=== PATIENT | female | born 1965 | race Caucasian/White ===

== ENCOUNTER 2023-04-02 04:57 | Emergency (ER) | payer SELFPAY ==
[2023-04-02 04:59] VITALS: BP 128/65; PULSE 85; RESP 32; TEMP 36.6; O2SAT 99; BMI 33.5
--- NOTE | 2023-04-02 05:03 | ED_ITS ---
HPI - Nausea/Vomiting/Diarrhea General Chief complaint: Nausea/Vomiting/Diarrhea Stated complaint: VOMITING Time Seen by Provider: 04/02/23 05:02 History of Present Illness HPI Narrative: patient presents with recurrent vomiting that started last PM. One loose stool. No fever or chills. Abdominal cramping. She believes her symptoms are related to chicken she ate last PM Related Data Home Medications Medication Instructions Recorded Confirmed alprazolam 0.25 mg tablet mg 04/02/23 Allergies Allergy/AdvReac Type Severity Reaction Status Date / Time naproxen [From Aleve] Allergy Unknown Verified 04/02/23 05:12 Penicillins Allergy Unknown Verified 04/02/23 05:07 tramadol Allergy Unknown Verified 04/02/23 05:07 Review of Systems ROS Status of ROS 10 or more systems reviewed and unremark able except as noted in history and below PFSH PFS Social History Smoking status: Never smoker Exam Constitutional Vital Signs, click to edit/add: Last Vital Signs Temp 97.9 F 04/02/23 04:59 Pulse 85 04/02/23 04:59 Resp 32 H 04/02/23 04:59 BP 128/65 04/02/23 04:59 Pulse Ox 99 04/02/23 04:59 O2 Del Method Room Air 04/02/23 04:59 Common normals: oriented x3, alert and well nourished HENIN Common normals: normocephalic and head/scalp atraumatic Eye Common normals: EOMs intact bilaterally and conjunctivae normal Respiratory Common normals: normal respiratory effort, no retractions and no use of accessory muscles Cardio Common normals: regular rate, regular rhythm, S1 normal heart sound and S2 normal heart sound GI Common normals: Normal to inspection, nondistended, normoactive bowel sounds present, soft to palpation and non-tender Extremity Common normals: normal to inspection and full ROM Neuro Common normals: oriented x3, CN's II-XII intact bilaterally, moves all extremities and no focal motor deficits Psych Appearance: grossly normal Course Vital Signs Vital signs: Vital Signs Temperature 97.9 F 04/02/23 04:59 Pulse Rate 85 04/02/23 04:59 Respiratory Rate 32 H 04/02/23 04:59 Blood Pressure 128/65 04/02/23 04:59 Pulse Oximetry 99 04/02/23 04:59 Oxygen Delivery Method Room Air 04/02/23 04:59 Temperature 97.9 F 04/02/23 04:59 Pulse Rate 85 04/02/23 04:59 Respiratory Rate 32 H 04/02/23 04:59 Blood Pressure 128/65 04/02/23 04:59 Pulse Oximetry 99 04/02/23 04:59 Oxygen Delivery Method Room Air 04/02/23 04:59 MDM - Nausea/Vomiting/Diarrhea MDM Narrative Medical decision making narrative: patient presents with possible food poisoning. Recurrent vomiting and one loose stool before arrival. Nausea and vomiting controlled after she was given zofran by [facility] and Reglan here in the department. Did have 2nd loose stool while here. labs with elevated lactic acid. IV fluids ordered. Patient starting to feel better. Will transfer care to oncoming physician Differential Diagnosis Differential diagnosis: Likely food poisoning, gastroenteritis, drug-induced nausea and vomiting and dehydration Lab Data Labs: Lab Results 04/02/23 04/02/23 Range/Units 05:09 05:50 WBC 12.2 H (4.0-11.0) 10^3/uL RBC 4.78 (4.20-5.40) 10^6/uL Hgb 14.5 (12.0-16.0) g/dL Hct 45.3 (36.0-48.0) % MCV 94.8 (81.0-99.0) fL MCH 30.3 (26.7-34.0) pg MCHC 32.0 (29.9-35.2) g/dL RDW 12.5 (11.0-15.0) % Plt Count 264 (150-450) 10^3/uL MPV 10.0 (9.5-13.5) fL Neut % (Auto) 88.5 H (43.0-75.0) % Lymph % (Auto) 6.3 L (20.5-60.0) % [place] % (Auto) 3.5 (1.7-12.0) % Eos % (Auto) 0.6 L (0.9-7.0) % Baso % (Auto) 0.3 (0.2-2.0) % Neut # (Auto) 10.8 H (1.4-6.5) 10^3/uL Lymph # (Auto) 0.8 L (1.2-3.8) 10^3/uL [place] # (Auto) 0.4 (0.3-0.8) 10^3/uL Eos # (Auto) 0.1 (0.0-0.7) 10^3/uL Baso # (Auto) 0.0 (0.0-0.1) 10^3/uL Abs Immat Gran (auto) 0.10 H (0.00-0.03) 10^3/uL Imm/Tot Granulo (auto) 0.8 H (0.0-0.5) % Sodium 140 (136-145) mmol/L Potassium 3.8 (3.5-5.1) mmol/L Chloride 105 (98-107) mmol/L Carbon Dioxide 26.0 (21.0-32.0) mmol/L Anion Gap 12.8 BUN 20.0 H (7.0-18.0) mg/dL Creatinine 0.85 (0.55-1.02) mg/dL Est GFR ( Amer) >60 (>=60) Est GFR (Non-Af Amer) >60 (>=60) BUN/Creatinine Ratio 23.5 Glucose 112 H (74-106) mg/dL Lactate 4.0 H* (0.4-2.0) mmol/L Calcium 8.4 L (8.5-10.1) mg/dL Total Bilirubin 0.7 (0.2-1.0) mg/dL AST 25 (15-37) U/L ALT 69 H (14-59) U/L Alkaline Phosphatase 99 (46-116) U/L Total Protein 6.9 (6.4-8.2) g/dL Albumin 3.3 L (3.4-5.0) g/dL Globulin 3.6 g/dL Albumin/Globulin Ratio 0.9 Urine Color Yellow (YELLOW) Urine Clarity Clear (CLEAR) Urine pH 6.0 (5.0-9.0) Ur Specific [place] 1.015 (1.005-1.025) Urine Protein Negative (NEG/TRACE) mg/dL Urine Glucose (UA) Negative (NEGATIVE) mg/dL Urine Ketones Negative (NEGATIVE) mg/dL Urine Occult Blood Negative (NEGATIVE) Urine Nitrite Negative (NEGATIVE) Urine Bilirubin Negative (NEGATIVE) Urine Urobilinogen 0.2 (0.2-1.0) EU/dL Ur Leukocyte Esterase Negative (NEGATIVE) Discharge Plan Discharge Chief Complaint: Nausea/Vomiting/Diarrhea Clinical Impression: Food poisoning Patient Disposition: Still a Patient Prescriptions / Home Meds: No Action alprazolam 0.25 mg tablet Referrals: Josi Ruiz MD [Primary Care Provider] - 1 week
[2023-04-02] MEDS: METOCLOPRAMIDE HCL 10 MG/2 ML VIAL IVP (05:21)
[2023-04-02 05:24] LABS: Basophils Percent Auto 0.3 % (0.2-2.0); Eosinophils Absolute Auto 0.1 10^3/uL (0.0-0.7); Eosinophils Percent Auto 0.6 % (0.9-7.0); Hematocrit 45.3 % (36.0-48.0); Hemoglobin 14.5 g/dL (12.0-16.0); Immature Granulocytes Pct Auto 0.8 % (0.0-0.5); Lymphocytes Absolute Auto 0.8 10^3/uL (1.2-3.8); Lymphocytes Percent Auto 6.3 % (20.5-60.0); Mean Corpuscular Hemoglobin 30.3 pg (26.7-34.0); Mean Corpuscular Volume 94.8 fL (81.0-99.0); Monocytes Absolute Auto 0.4 10^3/uL (0.3-0.8); Monocytes Percent Auto 3.5 % (1.7-12.0); Neutrophils Absolute Auto 10.8 10^3/uL (1.4-6.5); Neutrophils Percent Auto 88.5 % (43.0-75.0); Platelet Count 264 10^3/uL (150-450); Red Blood Count 4.78 10^6/uL (4.20-5.40); Red Cell Distribution Width 12.5 % (11.0-15.0); White Blood Count 12.2 10^3/uL (4.0-11.0)
[2023-04-02 05:34] LABS: Alanine Aminotransferase 69 U/L (14-59); Albumin Globulin Ratio 0.9; Albumin Level 3.3 g/dL (3.4-5.0); Alkaline Phosphatase 99 U/L (46-116); Anion Gap 12.8; Aspartate Amino Transferase 25 U/L (15-37); BUN Creatinine Ratio 23.5; Bilirubin Total 0.7 mg/dL (0.2-1.0); Calcium 8.4 mg/dL (8.5-10.1); Chloride 105 mmol/L (98-107); Estimated GFR (African America >60 (>=60); Estimated GFR (Non-African Ame >60 (>=60); Globulin 3.6 g/dL; Glucose 112 mg/dL (74-106); Potassium 3.8 mmol/L (3.5-5.1); Sodium 140 mmol/L (136-145); Total Protein 6.9 g/dL (6.4-8.2)
[2023-04-02] MEDS: LORAZEPAM 2 MG/ML 1 ML VIAL 1 MG IV (05:35)
[2023-04-02 06:00] LABS: Bilirubin Urine NEGATIVE (NEGATIVE); Blood Urine NEGATIVE (NEGATIVE); Clarity Urine CLEAR (CLEAR); Color Urine YELLOW (YELLOW); Glucose Urine UA NEGATIVE (NEGATIVE); Ketones Urine NEGATIVE (NEGATIVE); Leukocyte Esterase Urine NEGATIVE (NEGATIVE); Nitrite Urine NEGATIVE (NEGATIVE); Protein Urine NEGATIVE (NEG/TRACE); Specific Gravity Urine 1.015 (1.005-1.025); Urobilinogen Urine 0.2 EU/dL (0.2-1.0)
[2023-04-02 06:09] LABS: Urine Microscopic Indicated NO
[2023-04-02 07:13] VITALS: BP 120/75; PULSE 99; RESP 20; O2SAT 100
--- NOTE | 2023-04-02 08:44 | ED_ITS ---
HPI - Nausea/Vomiting/Diarrhea General Chief complaint: Nausea/Vomiting/Diarrhea Stated complaint: VOMITING Time Seen by Provider: 04/02/23 05:02 Source: patient Mode of arrival: ambulance Limitations: no limitations History of Present Illness HPI Narrative: The patient was initially seen by Dr. Sorto and signed out to me after discussing the case with him thoroughly. Please see his full history and physical Related Data Home Medications Medication Instructions Recorded Confirmed alprazolam 0.25 mg tablet 0.25 mg PO Q12H 04/02/23 04/02/23 benzonatate 200 mg capsule 200 mg PO Q8H 04/02/23 04/02/23 doxycycline monohydrate 100 mg 100 mg PO Q12H 04/02/23 04/02/23 tablet levothyroxine 75 mcg tablet 75 mcg PO Q24H 04/02/23 04/02/23 Previous Rx's Medication Instructions Recorded ondansetron 4 mg disintegrating 4 mg PO Q6H PRN nausea and 04/02/23 tablet vomiting #20 tabs Allergies Allergy/AdvReac Type Severity Reaction Status Date / Time naproxen [From Aleve] Allergy Unknown Verified 04/02/23 05:12 Penicillins Allergy Unknown Verified 04/02/23 05:07 tramadol Allergy Unknown Verified 04/02/23 05:07 PFSH PFSH Social History Smoking status: Never smoker Exam Constitutional Vital Signs, click to edit/add: Last Vital Signs Temp 97.9 F 04/02/23 04:59 Pulse 99 H 04/02/23 07:13 Resp 20 04/02/23 07:13 BP 120/75 04/02/23 07:13 Pulse Ox 100 04/02/23 07:13 O2 Del Method Room Air 04/02/23 04:59 Course Vital Signs Vital signs: Vital Signs Temperature 97.9 F 04/02/23 04:59 Pulse Rate 85 04/02/23 04:59 Respiratory Rate 32 H 04/02/23 04:59 Blood Pressure 128/65 04/02/23 04:59 Pulse Oximetry 99 04/02/23 04:59 Oxygen Delivery Method Room Air 04/02/23 04:59 Temperature 97.9 F 04/02/23 04:59 Pulse Rate 99 H 04/02/23 07:13 Respiratory Rate 20 04/02/23 07:13 Blood Pressure 120/75 04/02/23 07:13 Pulse Oximetry 100 04/02/23 07:13 Oxygen Delivery Method Room Air 04/02/23 04:59 MDM - Nausea/Vomiting/Diarrhea MDM Narrative Medical decision making narrative: The patient is feeling improved now and is able to be discharged home with a prescription for Zofran. Treatment diagnosis and follow-up were discussed with the patient. Differential Diagnosis Differential diagnosis: Likely food poisoning, gastroenteritis and dehydration Lab Data Attestation: I reviewed the patient's lab results. Labs: Lab Results 04/02/23 04/02/23 04/02/23 Range/Units 05:09 05:50 08:02 WBC 12.2 H (4.0-11.0) 10^3/uL RBC 4.78 (4.20-5.40) 10^6/uL Hgb 14.5 (12.0-16.0) g/dL Hct 45.3 (36.0-48.0) % MCV 94.8 (81.0-99.0) fL MCH 30.3 (26.7-34.0) pg MCHC 32.0 (29.9-35.2) g/dL RDW 12.5 (11.0-15.0) % Plt Count 264 (150-450) 10^3/uL MPV 10.0 (9.5-13.5) fL Neut % (Auto) 88.5 H (43.0-75.0) % Lymph % (Auto) 6.3 L (20.5-60.0) % [place] % (Auto) 3.5 (1.7-12.0) % Eos % (Auto) 0.6 L (0.9-7.0) % Baso % (Auto) 0.3 (0.2-2.0) % Neut # (Auto) 10.8 H (1.4-6.5) 10^3/uL Lymph # (Auto) 0.8 L (1.2-3.8) 10^3/uL [place] # (Auto) 0.4 (0.3-0.8) 10^3/uL Eos # (Auto) 0.1 (0.0-0.7) 10^3/uL Baso # (Auto) 0.0 (0.0-0.1) 10^3/uL Abs Immat Gran (auto) 0.10 H (0.00-0.03) 10^3/uL Imm/Tot Granulo (auto) 0.8 H (0.0-0.5) % Sodium 140 (136-145) mmol/L Potassium 3.8 (3.5-5.1) mmol/L Chloride 105 (98-107) mmol/L Carbon Dioxide 26.0 (21.0-32.0) mmol/L Anion Gap 12.8 BUN 20.0 H (7.0-18.0) mg/dL Creatinine 0.85 (0.55-1.02) mg/dL Est GFR ( Amer) >60 (>=60) Est GFR (Non-Af Amer) >60 (>=60) BUN/Creatinine Ratio 23.5 Glucose 112 H (74-106) mg/dL Lactate 4.0 H* 2.0 (0.4-2.0) mmol/L Calcium 8.4 L (8.5-10.1) mg/dL Total Bilirubin 0.7 (0.2-1.0) mg/dL AST 25 (15-37) U/L ALT 69 H (14-59) U/L Alkaline Phosphatase 99 (46-116) U/L Total Protein 6.9 (6.4-8.2) g/dL Albumin 3.3 L (3.4-5.0) g/dL Globulin 3.6 g/dL Albumin/Globulin Ratio 0.9 Urine Color Yellow (YELLOW) Urine Clarity Clear (CLEAR) Urine pH 6.0 (5.0-9.0) Ur Specific [place] 1.015 (1.005-1.025) Urine Protein Negative (NEG/TRACE) mg/dL Urine Glucose (UA) Negative (NEGATIVE) mg/dL Urine Ketones Negative (NEGATIVE) mg/dL Urine Occult Blood Negative (NEGATIVE) Urine Nitrite Negative (NEGATIVE) Urine Bilirubin Negative (NEGATIVE) Urine Urobilinogen 0.2 (0.2-1.0) EU/dL Ur Leukocyte Esterase Negative (NEGATIVE) Discharge Plan Discharge Chief Complaint: Nausea/Vomiting/Diarrhea Clinical Impression: Food poisoning Patient Disposition: Home, Self-Care Time of Disposition Decision: 08:43 Condition: Good Mode of Transportation: Private Vehicle Prescriptions / Home Meds: New ondansetron 4 mg tablet,disintegrating 4 mg PO Q6H PRN (Reason: nausea and vomiting) Qty: 20 0RF No Action alprazolam 0.25 mg tablet 0.25 mg PO Q12H benzonatate 200 mg capsule 200 mg PO Q8H doxycycline monohydrate 100 mg tablet 100 mg PO Q12H levothyroxine 75 mcg tablet 75 mcg PO Q24H Instructions: Food Poisoning (ED) Stand Alone Forms: Portal Instructions Referrals: Josi Ruiz MD [Primary Care Provider] - 1 week
[2023-04-02 09:02] VITALS: BP 94/72; PULSE 93; RESP 20; O2SAT 100
== END 2023-04-02 09:06 | disposition home or self-care (01) ==
PROVIDERS: Internal Medicine; Emergency Provider Emergency Medicine; PCP Family Medicine
DX: A05.9 Bacterial foodborne intoxication, unspecified (principal)
CPT/HCPCS: 36415; 80053; 81003; 83605; 85025; 96374; 96375; 99284; J2060; J2765

== ENCOUNTER 2024-06-01 15:15 | Emergency (ER) | payer SELFPAY ==
[2024-06-01 15:20] VITALS: BP 132/77; PULSE 85; TEMP 36.6; O2SAT 97; BMI 34.5
--- OUTSIDE RECORDS SUMMARY | 2024-06-01 15:50 | XMS_ITS | CCD ---
Author Organization [facility] Care Team Providers Care Life Enrichment Assistant Name Role Phone Jesús Matta Unavailable Anthony Easton MD Unavailable [phone] Anthony Easton MD Primary Care Provider [phone] Anthony Easton MD Unavailable Anthony Easton MD Primary Care Provider [phone] Anthony Easton Unavailable Sudeep Dickinson Unavailable DR ANTHONY EASTON Primary Care Unavailable ABI AZAR Admitting Unavailable ABI AZAR Attending Unavailable ABI AZAR Consulting Unavailable JEMMA, DR ANTHONY Glaser Primary Care Unavailable HANNAH, DR JONI Mercer Admitting Unavailable HANNAH, DR JONI Mercer Attending Unavailable HANNAH, DR JONI Mercer Consulting Unavailable EASTON, DR ANTHONY Glaser Admitting Unavailable EASTON, DR ANTHONY Glaser Attending Unavailable EASTON, DR ANTHONY Glaser Primary Care Unavailable JOLON, DR JOSIANE Jewell Consulting Unavailable EASTON, DR ANTHONY Glaser Consulting Unavailable EASTON, DR ANTHONY Glaser Admitting Unavailable EASTON, DR ANTHONY Glaser Attending Unavailable EASTON, DR ANTHONY Glaser Primary Care Unavailable EASTON, DR ANTHONY Glaser Consulting Unavailable ERWIN PAVON Consulting Unavailable EASTON, DR ANTHONY Glaser Admitting Unavailable EASTON, DR ANTHONY Glaser Attending Unavailable EASTON, DR ANTHONY Glaser Primary Care Unavailable EASTON, DR ANTHONY Glaser Consulting Unavailable EASTON, DR ANTHONY Glaser Admitting Unavailable EASTON, DR ANTHONY Glaser Attending Unavailable EASTON, DR ANTHONY Glaser Primary Care Unavailable EASTON, DR ANTHONY Glaser Consulting Unavailable NICOLASA FIELDS Consulting Unavailable JEMMA, DR ANTHONY Glaser Primary Care Unavailable DOUGLAS BENTON Admitting Unavailable DOUGLAS BENTON Attending Unavailable JOANIE GATES Consulting UnavailDEBBI Gomez Consulting Unavailable MD Anthony Easton Primary Care Provider GABBY Gonzalez Emergency Provider Pema Batista Unavailable MD Anthony Easton Primary Care Provider MD Jesús Smith Jr Emergency Provider ANTHONY EASTON Referring Unavailable ANTHONY EASTON Primary Care Unavailable ANTHONY EASTON Referring Unavailable ANTHONY EASTON Primary Care Unavailable ANTHONY EASTON Referring Unavailable ANTHONY EASTON Primary Care Unavailable ANTHONY EASTON Referring Unavailable ANTHONY EASTON Primary Care Unavailable Anthony Easton MD Primary Care Provider Anthony Easton MD Primary Care Provider Anthony Easton MD Primary Care Provider Self, Referral Attending Provider Unavailable Visci , Ghassan Referring Provider [phone] BLANCO GONZALEZ Attending Unavailable VISCI, GHASSAN Aranda Attending Unavailable VISCI, GHASSAN Aranda Attending Unavailable VISCI, GHASSAN Aranda Referring Unavailable VISCI, GHASSAN A Attending Unavailable Self, Referral Admitting Unavailable Self, Referral Attending Unavailable Visci, Ghassan Referring Unavailable Anthony Easton Primary Care Unavailable Allergies Allergy Classification Reported Allergen(s) Allergy Type Date of Onset Reaction(s) Facility (20 sources) Naproxen Drug Allergy 07-08-19 Other: See Comments, Unknown, Dizziness, GI intolerance [facility] (18 sources) Penicillin Drug Allergy Unknown [facility] Other (20 sources) traMADol; Translations: [TRAMADOL] Drug Allergy 07-08-19 Other: See Comments, Unknown, Dizziness, Rash [facility] (13 sources) diphenhydrAMINE Drug Allergy 01-06-20 Mental Status Change, Other [facility] (7 sources) Penicillins; Translations: [PENICILLINS] Drug Allergy 07-08-19 Other: See Comments, Unknown [facility] (20 sources) topiramate Drug Allergy 04-12-19 24 Unknown, Unknown Reaction [facility] (1 source) diphenhydrAMINE Drug Allergy [facility] (1 source) Naproxen Drug Allergy [facility] (1 source) Penicillin Drug Allergy [facility] (1 source) traMADol Drug Allergy [facility] (9 sources) diphenhydrAMINE; Translations: [diphenhydramine] Drug Allergy 02-02-20 Anxiety [facility] (8 sources) Penicillin; Translations: [penicillin V] Drug Allergy 04-12-19 [facility] (1 source) Naproxen; Translations: [NAPROXEN SODIUM] Drug Allergy 07-08-19 [facility] (8 sources) Penicillins Drug Allergy 07-08-19 Unknown, Rash [facility] (8 sources) Topiramate Allergy to substance 05-26-19 [facility] (1 source) Naproxen Drug Allergy 01-12-20 [facility] (1 source) topiramate Drug Allergy 01-12-20 [facility] (1 source) traMADol Drug Allergy 01-12-20 [facility] Medications Current Medications Medication Drug Class(es) Dates Sig (Normalized) Sig (Original) estradiol 0.1 mg/ml vaginal cream (9 sources) Estrogen Start: 05-23-2023 End: 05-28-2025 estradiol (Estrace) 0.1 MG/GM vaginal cream Indications: Vaginal atrophy Insert 1 g into the vagina 2 (two) times a week 42.5 g 3 05/28/2024 05/28/2025 Active fluconazole 150 mg oral tablet (1 source) Azole Antifungal take 1 tablet by mouth once Fluconazole 150 MG 1 tablet Orally once for 1 days Active ibuprofen 600 mg oral tablet (14 sources) Nonsteroidal Anti-inflammatory Drug Start: 05-26-2023 take 1 tablet by mouth every eight hours as needed for pain Ibuprofen 600 mg tablet Active 600 MG PO Q8H as needed for pain May 26, 2023 12:00am Start: 03-12-2017 End: 02-01-2023 Ibuprofen (Motrin Ib) 200 mg Tablet Discontinued 800 MG PO Q6H as needed for Pain March 12, 2017 1:00am February 01, 2023 11:17am methylPREDNISolone 4 mg oral tablet (18 sources) Corticosteroid Start: 04-30-2016 24 hr mirabegron 25 mg extended release oral tablet (9 sources) beta3-Adrenergic Agonist nystatin 100 unt/mg topical powder (20 sources) Polyene Antifungal Start: 04-03-2024 Nystatin 10 0,000 unit/gram powder Active 1 APPLIC TOPICAL Twice daily April 03, 2024 3:37pm Start: 03-30-2023 End: 05-26-2023 Nystatin 100,000 unit/gram p owder Discontinued 1 APPLIC TOPICAL Twice daily April 11, 2023 1:00am May 26, 2023 2:46am [employer] application Externally Twice a day; Note: Source Status: Taking; Refills: 1; Qty: 30 Gram; Provider: Jemma Glaser Start: 04-08-2022 Nystatin 38425 0 UNIT/GM 1 application Externally Twice a day Mar, Active omeprazole 20 mg delayed release oral capsule (2 sources) Proton Pump Inhibitor Start: 01-13-2024 take 1 capsule by mouth once daily Omeprazole 20 mg capsule,delayed release(DR/EC) Active 20 MG PO Daily January 13, 2024 1:00am sulfamethoxazole 800 mg / trimethoprim 160 mg oral tablet (4 sources) Dihydrofolate Reductase Inhibitor Antibacterial, Sulfonamide Antimicrobial Start: 04-30-2024 End: 05-07-2024 take 1 tablet by mouth once in the morning, then take 1 tablet by mouth once at bedtime sulfamethoxazole-tr imethoprim (Bactrim DS) 800-160 MG per tablet Indications: Furuncle Take 1 tablet by mouth in the morning and 1 tablet before bedtime. Do all this for 7 days. 14 tablet 1 04/30/2024 05/07/2024 Active Start: 03-30-2024 take 1 tablet by pavel th twice daily Sulfamethoxazole-Trimethoprim 800-160 mg tablet Active 1 TAB PO Twice daily March 30, 2024 1:00am Completed/Discontinued Medications Medication Drug Class(es) Dates Sig (Normalized) Sig (Original) acetaminophen 325 mg / HYDROcodone bitartrate 5 mg oral tablet (6 sources) Opioid Agonist Start: 05-26-2023 End: 08-31-2023 take 1 tablet by mouth every six hours as needed for pain Hydrocodone-Acetam inophen 5-325 mg tablet Discontinued 1 - 2 TAB PO Q6H as needed for pain 15 3 May 26, 2023 August 31, 2023 12:14pm [id number] 200 actuat albuterol 0.09 mg/actuat metered dose inhaler (20 sources) beta2-Adrenergic Agonist Start: 02-01-2023 End: 05-26-2023 Albuterol Sulfate 90 mcg/actuation HFA aerosol inhaler Discontinued 2 INH INHALATION Q6H as needed for shortness of breath or wheezing February 01, 2023 1:00am May 26, 2023 2:46am administer with spacer Start: 04-30-2016 Albuterol Sulfat e HFA Active ALPRAZolam 0.25 mg oral tablet (20 sources) Benzodiazepine Start: 03-05-2022 take 1 tablet by mouth twice daily as needed Xanax 0.25 MG 1 tablet Orally Twice a day prn for 30 days Jan, Active Start: 12-07-2021 take 1 tablet by pavel th every eight hours as needed ALPRAZolam (XANAX) 0.25 mg tablet Take 0.25 mg by mouth three times daily as needed. 12/07/2021 Active Start: 03-12-2017 End: 04-23-2024 take 1 tablet by mouth once daily as needed for anxiety Alprazolam 0.25 mg tablet Discontinued 0.25 MG PO Daily as needed for Anxiety May 05, 2023 10:31am July 14, 2023 11:04am Comment on above: Take 0.25 mg by mout h three times daily as needed. azithromycin 250 mg oral tablet (17 sources) Macrolide Antimicrobial Start: 03-12-19 End: 02-02-20 take 1 tablet by mouth once daily Azithromycin 250 mg tablet Discontinued 250 MG PO Daily March 12, 2017 1:00am February 01, 2023 11:17am Start: 03-28-2015 Zithromax Z-Pa k 250 MG 2 tablets on the first day, then 1 tablet daily for 4 days Orally Once a day for 5 day(s) Feb, Not-Taking benzonatate 200 mg oral capsule (10 sources) Non-narcotic Antitussive Start: 04-11-2023 End: 04-12-2023 take 1 capsule by mouth three times daily Benzonatate 200 mg capsule Discontinued 1 CAP PO Three times daily April 11, 2023 1:00am April 12, 2023 10:59am [employer] capsule Orally Three times a day; Note: Source Status: Taking; Refills: 0; Qty: 30 Capsule; Provider: Jemma Glaser Start: 02-09-2023 take 1 capsule by [facility] every eight hours Benzonatate 200 MG 1 capsule Orally Three times a day for 10 day(s) Jan, Active cyclobenzaprine hydrochloride 10 mg oral tablet (8 sources) Muscle Relaxant Start: 03-12-2017 End: 03-16-2017 take 1 tablet by mouth every eight hours Cyclobenzaprine 10 mg tablet Discontinued 10 MG PO Q8H 12 March 12, 2017 1:00am March 15, 2017 1:00am March 16, 2017 1:03am doxycycline monohydrate 100 mg oral tablet (20 sources) Tetracycline-c lass Drug Start: 01-31-2023 take 1 tablet by mouth every twelve hours Doxycycline Monohydrate 100 MG 1 tablet Orally Twice a day Jan, Active Start: 01-31-2023 End: 04-11-2023 take 1 tablet by mouth twice daily Doxycycline Monohydrate 100 mg tablet Discontinued 100 MG PO Twice daily February 01, 2023 1:00am April 11, 2023 4:23pm Start: 04-30-2016 take 1 capsule by [facility] every twelve hours Doxycycline Monohydrate 100 MG 1 capsule Orally every 12 hrs for 10 days Apr, Not-Taking levothyroxine sodium 0.075 mg oral tablet (20 sources) l-Thyroxine Start: 04-29-2023 End: 02-16-2024 take 1 tablet by mouth once daily Levothyroxine 75 mcg tablet Discontinued 75 MCG PO Daily October 24, 2023 2:10pm February 16, 2024 9:29am Start: 04-25-2023 End: 10-24-2023 take 1 tablet by mouth once daily in the morning Levothyroxine 75 mcg tablet Discontinued 0 .ROUTE .COMPLEX August 31, 2023 12:14pm October 24, 2023 2:11pm take 1 tablet by mouth every morning ON AN EMPTY STOMACH 30 Start: 02-01-2023 End: 04-25-2023 take 1 tablet by mouth once daily Levothyroxine 75 mcg tablet Discontinued 75 MCG PO Daily February 01, 2023 1:00am April 25, 2023 3:22pm Start: 04-02-2022 take 1 tablet by [facility] once daily in the morning Levothyroxine Sodium 75 MCG 1 tablet in the morning on an empty stomach Orally Once a day for 30 day(s) Mar, Active Start: 03-12-2017 End: 02-01-2023 take 1 tablet by mouth once daily Levothyroxine 50 mcg tablet Discontinued 50 MCG PO Daily March 12, 2017 1:00am February 01, 2023 11:18am Levothyroxine So dium 50 MCG (Prior Auth: Rx Ref#:[id number]) Oral for 30 Active Levothroid Not-T aking Comment on above: Take 50 mcg by mouth once daily. lidocaine 0.04 mg/mg medicated patch (6 sources) Antiarrhythmic, Amide Local Anesthetic Start: 05-26-19 End: 11-24-19 apply 1 dose topically every twelve hours as needed for pain Lidocaine 4 % adhesive patch,medicated Discontinued 1 PATCH TOPICAL Every 12 hours as needed for pain May 26, 2023 12:00am November 24, 2023 1:22pm Apply to painful area of chest wall. nabumetone 500 mg oral tablet (9 sources) Nonsteroidal Anti-inflammatory Drug Nabumetone 500 MG (Prior Auth: Rx Ref#:[id number]) Oral for 30 Not-Taking Nystatin 100,000 unit/gram powder (1 source) Start: 04-03-19 End: 04-03-19 Nystatin 100,000 unit/gram powder Discontinued 1 APPLIC TOPICAL Twice daily April 03, 2024 1:00am April 03, 2024 3:37pm SUMAtriptan 100 mg oral tablet (20 sources) Serotonin-1b and Serotonin-1d Receptor Agonist Start: 12-23-19 End: 01-24-20 Sumatriptan Succinate 100 mg tablet Discontinued 0 .ROUTE .COMPLEX January 21, 2024 8:01am January 24, 2024 1:53pm TAKE 1 TABLET BY MOUTH NEEDED FOR MIGRAINE headache Start: 12-17-2021 End: 03-30-2024 take 1 tablet by mouth every two hours as needed for headache, then take 1 tablet by mouth every two hours as needed for headache, then take 2 tablets by mouth every twenty-four hours as needed for headache Sumatriptan Succinate 100 mg tablet Discontinued 100 MG PO Every 2 hours as needed for migraine headache January 24, 2024 1:50pm March 30, 2024 3:03pm Take 1 tablet with start of Migraine. If migraine persists, take 1 tablet 2 hours following the first tablet. DO NOT EXCEED two tablets with 24 hour period. Start: 03-12-2017 End: 03-12-2017 Sumatriptan Succinate 100 mg tablet Discontinued TABLET March 12, 2017 1:00am March 12, 2017 12:39pm Start: 03-12-2017 End: 12-23-2023 take 1 tablet by mouth once daily as needed for headache Sumatriptan Succinate 100 mg tablet Discontinued 100 MG PO Daily as needed for Migraine Headache October 24, 2023 2:10pm December 23, 2023 1:16pm Imitrex KieranDenita joceline Comment on above: Take 100 mg by mouth as needed. triamcinolone acetonide 1 mg/ml topical cream (20 sources) Corticosteroid Start: 03-07-2023 End: 04-30-2024 triamcinolone (Kenalog) 0.1 % cream Indications: Other atopic dermatitis Apply to affected areas, up to twice a day when flared, do not use one the face, groin, or underarms, 30 day supply 80 g 11 03/07/2023 04/30/2024 Discontinued (Therapy completed) Start: 09-12-2018 KENALOG - 10 m g Aug, 40 mg Problems Active Problems Problem Classification Problem Date Documented Date Episodic/Chronic Abdominal pain (11 sources) Right upper quadrant pain; Translations: [Abdominal pain] Onset: 03-30-2022 Episodic Acute bronchitis (9 sources) Acute bronchitis; Translations: [Acute bronchitis, unspecified] Episodic Allergic reactions (9 sources) Inflammatory dermatosis; Translations: [Dermatitis, unspecified] Episodic Anxiety disorders (8 sources) Anxiety disorder, unspecified; Translations: [Acute stress disorder] Onset: 02-02-2022 04-12-2023 Chronic Chronic obstructive pulmonary disease and bronchiectasis (10 sources) Bronchitis; Translations: [Bronchitis, not specified as acute or chronic] 02-01-2023 Episodic Conditions associated with dizziness or vertigo (1 source) Dizziness and giddiness Episodic Esophageal disorders (9 sources) Gastroesophageal reflux disease without esophagitis; Translations: [Gastro-esophageal reflux disease without esophagitis] 04-12-2023 Chronic Genitourinary symptoms and ill-defined conditions (9 sources) Genitourinary symptoms; Translations: [Unspecified symptoms and signs involving the genitourinary system] Episodic Headache; including migraine (3 sources) Migraine, unspecified, not intractable, without status migrainosus; Translations: [Migraine] Onset: 02-02-2022 03-30-2024 Chronic Headache; including migraine (3 sources) Headache; including migraine; Translations: [HEADACHE UNSPECIFIED] Onset: 01-30-2022 Menopausal disorders (2 sources) Atrophy of vagina; Translations: [Postmenopausal atrophic vaginitis] 05-28-2024 Chronic Mycoses (9 sources) Candidiasis of skin and nails; Translations: [Candidiasis of skin and nail] Episodic Nonspecific chest pain (6 sources) Chest wall pain; Translations: [Other chest pain] 05-26-2023 Episodic Other circulatory disease (9 sources) Elevated blood-pressure reading without diagnosis of hypertension; Translations: [Elevated blood-pressure reading, without diagnosis of hypertension] Episodic Other circulatory disease (2 sources) Spider nevus; Translations: [Nevus, non-neoplastic] 04-26-2024 Episodic Other congenital anomalies (9 sources) Congenital anomaly of endocrine gland; 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 Other diseases of kidney and ureters (1 source) Other specified disorders of kidney and ureter; Translations: [OTHER SPEC DISORDERS KIDNEY URETER] Onset: 03-30-2022 Chronic Other ear and sense organ disorders (6 sources) Hearing loss; Translations: [Unspecified hearing loss, unspecified ear] Chronic Other ear and sense organ disorders (1 source) Unspecified hearing loss, unspecified ear Chronic Other liver diseases (1 source) Fatty (change of) liver, not elsewhere classified; Translations: [FATTY CHANGE LIVER NEC] Onset: 03-30-2022 Chronic Other lower respiratory disease (7 sources) Dyspnea; Translations: [Dyspnea, unspecified] 04-12-2023 Episodic Other lower respiratory disease (6 sources) Dyspnea, unspecified; Translations: [Other respiratory abnormalities] Onset: 01-13-2024 04-12-2023 Episodic Other lower respiratory disease (1 source) Other abnormalities of breathing; Translations: [Other abnormalities of breathing] Onset: 01-13-2024 Episodic Other nervous system disorders (17 sources) Bilateral peripheral neuropathy of lower limbs; Translations: [Unspecified mononeuropathy of bilateral lower limbs] Chronic Other nervous system disorders (5 sources) Unspecified mononeuropathy of bilateral lower limbs; Translations: [UNS MONONEUROPATHY ROSEMARIE LOWER LIMBS] Onset: 03-27-2022 Chronic Other nutritional; endocrine; and metabolic disorders (18 sources) Obese class I; Translations: [Body mass index (BMI) 33.0-33.9, adult] Chronic Other screening for suspected conditions (not mental disorders or infectious disease) (2 sources) Patient encounter status; Translations: [Encounter for screening mammogram for malignant neoplasm of breast] 05-28-2024 Episodic Other skin disorders (2 sources) Seborrheic keratosis; Translations: [Other seborrheic keratosis] 04-26-2024 Episodic Other skin disorders (2 sources) Eruption; Translations: [Rash and other nonspecific skin eruption] 04-26-2024 Episodic Other skin disorders (2 sources) Lentiginosis; Translations: [Other melanin hyperpigmentation] 04-26-2024 Episodic Other upper respiratory infections (9 sources) Chronic sinusitis; Translations: [Chronic sinusitis, unspecified] Chronic Other upper respiratory infections (12 sources) Acute upper respiratory infection, unspecified; Translations: [Acute maxillary sinusitis] Onset: 04-17-2018 03-30-2024 Episodic Residual codes; unclassified (2 sources) Obstructive sleep apnea syndrome; Translations: [Obstructive sleep apnea (adult) (pediatric)] 01-13-2024 Chronic Residual codes; unclassified (1 source) Obstructive sleep apnea (adult) (pediatric); Translations: [Obstructive sleep apnea (adult)(pediatric)] 01-12-2024 Chronic Skin and subcutaneous tissue infections (2 sources) Furuncle; Translations: [Furuncle, unspecified] 04-30-2024 Episodic Spondylosis; intervertebral disc disorders; other back problems (3 sources) Cervical spondylosis without myelopathy; Translations: [Spondylosis without myelopathy or radiculopathy, cervical region] Onset: 03-25-2022 Chronic Spondylosis; intervertebral disc disorders; other back problems (13 sources) Cervicalgia; Translations: [Neck pain] Onset: 11-18-2021 Episodic Sprains and strains (17 sources) Neck sprain; Translations: [Strain of muscle, fascia and tendon at neck level, initial encounter] 03-12-2017 Episodic Comment on above: Problem List clean-u p per request of Phys. EHR Cmte Syncope (9 sources) Syncope and collapse; Translations: [Syncope and collapse] Episodic Thyroid disorders (18 sources) Hypothyroidism; Translations: [Hypothyroidism, unspecified] Chronic Thyroid disorders (9 sources) Disorder of thyroid gland; Translations: [Disorder of thyroid, unspecified] Onset: 11-29-2023 11-24-2023 Episodic Comment on above: Problem List clean-u p per request of Phys. EHR Cmte Unclassified (2 sources) COUGH, UNSPECIFIED; Translations: [COUGH, UNSPECIFIED] Onset: 02-18-2022 Unclassified (1 source) PERSONAL HISTORY OF COVID-19; Translations: [PERSONAL HISTORY OF COVID-19] Onset: 02-18-2022 Viral infection (1 source) Other viral warts Episodic Viral infection (13 sources) COVID-19; Translations: [Disease caused by 2019-nCoV] Onset: 02-04-2022 Past or Other Problems Problem Classification Problem Date Documented Date Episodic/Chronic Malaise and fatigue (9 sources) Fatigue; Translations: [Other fatigue] Onset: 03-15-2018 Episodic Menopausal disorders (1 source) Hormone replacement therapy; Translations: [HORMONE REPLACEMENT THERAPY] Onset: 02-18-2022 Episodic Nausea and vomiting (3 sources) Nausea with vomiting, unspecified; Translations: [NAUSEA WITH VOMITING UNSPECIFIED] Onset: 06-03-2021 Episodic Noninfectious gastroenteritis (1 source) Noninfective gastroenteritis and colitis, unspecified; Translations: [NONINFECTIVE GE AND COLITIS UNS] Onset: 06-04-2021 Episodic Other aftercare (1 source) Other computer terminal operator (current) drug therapy; Translations: [OTH INTERMEDIATE CURRENT DRUG THERAPY] Onset: 02-18-2022 Episodic Other skin disorders (9 sources) Folliculitis; Translations: [Follicular disorder, unspecified] Onset: 03-15-2018 Episodic Otitis media and related conditions (9 sources) Non-suppurative otitis media; Translations: [Unspecified nonsuppurative otitis media, left ear] Onset: 08-09-2017 Episodic Residual codes; unclassified (9 sources) Sleep disorder; Translations: [Sleep disorder, unspecified] Onset: 03-15-2018 Episodic Unclassified (1 source) COUGH, UNSPECIFIED; Translations: [COUGH, UNSPECIFIED] Onset: 02-17-2022 Results Test Name Value Interpretation Reference Range Facility MM screening mammo BI w/CADo n 05-28-2024 MM screening mammo BI w/CAD [facility] [address] [place], [place] [id number] Mammography Report Signed Patient: Reshma Feliz MR#: [id number] : 1965 Acct:[id number] Age/Sex: 58 / F Adm Date: 05/28/24 Loc: [place] Room: Type: [facility] Attending Dr: Referral Self Ordering Provider: SELF,REFERRAL Date of Service: 05/28/24 Procedure(s): MM screening mammo BI w/CAD Accession Number(s): ([id number]) MM/MM screening mammo BI w/CAD: SCREENING Copies to: MD Ghassan Man, SELF,REFERRAL CLINICAL DATA: Screening for malignancy. SCREENING MAMMOGRAM - FULL FIELD DIGITAL WITH TOMOSYNTHESIS AND CAD COMPARISON:Mammograms dating back to 2010 Tomosynthesis craniocaudal and mediolateral oblique views of both breasts were obtained using low- dose digital technique. This examination was reviewed with the aid of CAD. FINDINGS: The breast tissue is composed of scattered fibroglandular densities. There are no dominant masses, typically malignant calcifications or architectural distortion. There has been no significant interval change. MM/MM screening mammo BI w/CAD IMPRESSION: NO MAMMOGRAPHIC EVIDENCE OF MALIGNANCY. ROUTINE FOLLOW-UP IS RECOMMENDED IN ONE YEAR. RESULT CODE: 1 Negative DENSITY CODE: 2 (approximately 25-50% glandular) There are scattered areas of fibroglandular density. FOLLOW UP: 1YR The false-negative rate of mammography is approximately 10-percent. Management of a palpable abnormality must be based on clinical grounds. Patient was entered into a reminder system with a target due date for the next mammogram. Impression dictated by: Johny Higginbotham Jr., D.O.05/28/2024 5:11 PM Dictation Location: [facility] Dictated By: Johny Higginbotham Jr, DO 05/28/24 171 Signed By: 05/28/24 171 Normal [facility] Mammography reportOrdered By : Johny Higginbotham on 05-28-2024 Diagnostic imaging study [facility] [address] [place] [address] Mammography Report Signed Patient: Reshma Feliz MR#: [id number] : 1965 Acct:[id number] Age/Sex: 58 / F Adm Date: 5 Loc: [place] Room: Type: [facility] Attending Dr: Referral Self Ordering Provider: CHASE,REFERRAL Date of Service: 05/28/24 Procedure(s): MM screening mammo BI w/CAD Accession Number(s): ([id number]) MM/MM screening mammo BI w/CAD: SCREENING Copies to: MD Ghassan Man, SELF,REFERRAL ~ CLINICAL DATA: Screening for malignancy. SCREENING MAMMOGRAM - FULL FIELD DIGITAL WITH TOMOSYNTHESIS AND CAD COMPARISON:Mammograms dating back to 2010 Tomosynthesis craniocaudal and mediolateral oblique views of both breasts were obtained using low-dose digital technique. This examination was reviewed with the aid of CAD. FINDINGS: The breast tissue is composed of scattered fibroglandular densities. There are no dominant masses, typically malignant calcifications or architectural distortion. There has been no significant interval change. MM/MM screening mammo BI w/CAD IMPRESSION: NO MAMMOGRAPHIC EVIDENCE OF MALIGNANCY. ROUTINE FOLLOW-UP IS RECOMMENDED IN ONE YEAR. RESULT CODE: 1 Negative DENSITY CODE: 2 (approximately 25-50% glandular) There are scattered areas of fibroglandular density. FOLLOW UP: 1YR The false-negative rate of mammography is approximately 10-percent. Management of a palpable abnormality must be based on clinical grounds. Patient was entered into a reminder system with a target due date for the next mammogram. Impression dictated by: Johny Higginbotham Jr., D.O.05/28/2024 5:11 PM Dictation Location: [facility] Dictated By: Johny Higginbotham Jr, DO 05/28/241709 Signed By: 05/28/24 1711 [facility] Charli 05-09-2024 SUZIE Telephone (DPQ) -- RESHMA FELIZ ([id number]) 1965 F Date Time Provider Department 05/09/24 MONICA RAINES During your visit today, we recorded the following information about you: NguyễnMaribell 05/09/2024 3:49 PM Signed Patient called to see if we received OMR she emailed on 05/04 from [facility] in [place]. Advised we do not have yet. She will double ck email for accuracy. Ranjit Shannon 05/10/2024 10:43 AM Signed Outside medical records received from: [facility] derm Practice: Blanco Gonzalez Diagnosis: SCC L breast Sent to: Nurses for review and to determine appropriate appointment Outside records scanned into Epic: Yes Photos requested photos from the Pt. Palomo Schmidt RN 05/11/2024 1:16 PM Addendum OMR Per Dr. Zapata schedule for excision and can discuss other treatments at time of appointment. 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 AUC: 3 Size: 0.7 x 0.7 cm 60 minutes for PGY2 45 minutes for PGY3 30 minutes for PGY4 or staff Approved by: Pt preference Schedule with: Pt preference Location: Pt preference Photos in Get Images Palomo Schmidt RN 05/10/2024 11:00 AM Signed Addended by: PALOMO SCHMIDT on: 05/10/2024 11:00 AM Modules accepted: Orders Ranjit Shannon 05/11/2024 9:11 AM Signed Received photos. Sent to [employer] for upload. Pamela Johnson ST 05/11/2024 10:53 AM Signed Photos received via [employer] inbox and uploaded to patients Epic-Get Images. Reshma Feliz 05/11/2024 [facility] Yanelis May 11, 2024 10:53 AM Trisha Brown MD 05/11/2024 11:20 AM Signed Excision or topical. Please schedule for possible excision, but can discuss options at that time. Trisha Bajwa MD Bella Yumiko 05/14/2024 4:10 PM Signed LVM w/ PT to CB Bella Yumiko 05/15/2024 10:34 AM Signed Scheduled w/ pt Allergies As of Date: 05/09/2024 Noted Allergy Reaction PENICILLINS 07/07/2021 14 - Other: See Comments 16 - Unknown Comments: Tongue swelling BENADRYL (DIPHENHYDRAMINE HCL) 01/05/2022 1 - Mental Status Change Comments: High doses of Benadryl make pt very anxious NAPROXEN 07/07/2021 14 - Other: See Comments 16 - Unknown Comments: dizziness TRAMADOL 07/07/2021 14 - Other: See Comments 16 - Unknown Comments: Dizziness Date Reviewed: 03/25/2022 Reviewed by: Jerrica Santos RN - Fully Assessed Reason for Visit: Derm Surg OMR [Other] Primary Visit Diagnosis: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 - levothyroxine (SYNTHROID) 50 mcg tablet Take 50 mcg by mouth once daily. - SUMAtriptan (IMITREX) 100 mg tablet Take 100 mg by mouth as needed. Problem List As Of Date 05/09/2024 Noted Resolved Cervical spondylosis [M47.812] 03/25/2022 Encounter Status:Closed by MARIBELL ADRIAN on 05/09/[address] [facility] No Panel Informationon 04-26 Type of biopsy: harden ential Informed consent: discussed and consent obtained Informed consent comment: The risks and benefits of the biopsy were discussed. Risks include but are not limited to bleeding, infection, scarring, pain, and nerve damage. An opportunity to ask questions prior to the procedure was permitted and all questions were answered. Patient was prepped and draped in usual sterile fashion: area cleansed with alcohol. Anesthesia: the lesion was anesthetized in a standard fashion Anesthetic: 1% lidocaine w/ epinephrine 1-100,000 buffered w/ 8.4% NaHCO3 Instrument used: DermaBlade Hemostasis achieved with: electrodesiccation Outcome: patient tolerated procedure well Outcome comment: The specimen was placed in a prelabeled formalin container to be sent for pathology Post-procedure details: sterile dressing applied and wound care instructions given Post-procedure details comment: Emphasized need to contact clinic for any signs of infection, uncontrollable bleeding, or complications. Dressing type: bandage Additional details: Photo taken yes Amount of lidocaine used: 0.5 cc [facility] XR CHEST 2 VWSon 01-13-2024 XR CHEST 2 VWS XR CHEST 2 VWS XR CHEST 2 VWS HISTORY: Shortness of breath COMPARISON: Chest x-ray 04/12/2023 FINDINGS: PA and lateral upright films obtained. The cardiomediastinal silhouette is within normal limits. No pleural effusion. No consolidation. IMPRESSION: No radiographic evidence of acute cardiopulmonary process. Approved by Res Johny Easton MD on 01/13/2024 2:14 PM I, Juventino Davidson MD have personally reviewed the image(s) and agree with and/or edited the report Finalized by Juventino Davidson MD on 01/13/2024 3:59 PM Normal [facility] FREE T4on 11-29-2023 Free T4 [Mass/Vol] 1.02 ng/dL Normal 0.61-1.60 [facility] Comment on above: Performed By: #### [facility], 3024-7 #### [facility] ([id number]) [address], [address] [place] [address] TSH WITH REFLEXon 11-29-2023 TSH 1.65 uIU/mL Normal 0.49-4.67 [facility] Comment on above: Performed By: #### [facility], 3024-7 #### [facility] ([id number]) [address], [address] [place] [address] Activated partial thrombopla stin time (aPTT) in platelet poor plasma by coagulation aOrdered By: Jesús Smith on 05-26-2023 aPTT Coag (PPP) [Time] 32.6 s 25.1-36.5 [facility] Comment on above: A hematocrit value g reater than 55% may lead to inaccurate results in coagulation testing. Patients having hematocrit values >55% require a special collection tube for coagulation studies. Please contact the laboratory at [phone] for redraw instructions. Alanine aminotransferase [En zymatic activity/volume] in Serum or PlasmaOrdered By: Jesús Smith on 05-26-2023 ALT [Catalytic activity/Vol] 48 U/L 7-52 [facility] Albumin [Mass/volume] in Ser um or Plasma by Bromocresol green (BCG) dye binding methoOrdered By: Jesús Smith on 05-26-2023 Albumin BCG dye [Mass/Vol] 4.0 g/dL 3.5-5.7 [facility] Alkaline phosphatase [Enzyma tic activity/volume] in Serum or PlasmaOrdered By: Jesús Smith on 05-26-2023 ALP [Catalytic activity/Vol] 80 U/L 34-104 [facility] Aspartate aminotransferase [ Enzymatic activity/volume] in Serum or PlasmaOrdered By: Jesús Smith on 05-26-2023 AST [Catalytic activity/Vol] 26 U/L 13-39 [facility] Basophils Auto (Bld) [#/Vol] Ordered By: Jesús Smith on 05-26-2023 Basophils (Bld) [#/Vol] 0.1 10*3/uL 0.0-0.2 [facility] Basophils/100 WBC Auto (Bld) Ordered By: Jesús Smith on 05-26-2023 Basophils/100 WBC (Bld) 0.9 % . [facility] Bilirubin.total [Mass/volume ] in Serum or PlasmaOrdered By: Jesús Smith on 05-26-2023 Bilirubin [Mass/Vol] 0.4 mg/dL 0.3-1.0 [facility] Calcium [Mass/volume] in Ser um or PlasmaOrdered By: Jesús Smith on 05-26-2023 Calcium [Mass/Vol] 9.3 mg/dL 8.6-10.3 [facility] Carbon dioxide, total [Moles /volume] in Serum or PlasmaOrdered By: Jesús Smith on 05-26-2023 CO2 [Moles/Vol] 25.8 mmol/L 21.0-31.0 [facility] Chloride [Moles/volume] in S vaughn or PlasmaOrdered By: Jesús Smith on 05-26-2023 Chloride [Moles/Vol] 108 mmol/L 98-107 [facility] Creatine kinase [Enzymatic a ctivity/volume] in Serum or PlasmaOrdered By: Jesús Smith on 05-26-2023 CK [Catalytic activity/Vol] 80 U/L 30-223 [facility] Creatinine [Mass/volume] in Serum or PlasmaOrdered By: Jesús Smith on 05-26-2023 Creatinine [Mass/Vol] 0.63 mg/dL 0.60-1.20 [facility] Eosinophils Auto (Bld) [#/Vo l]Ordered By: Jesús Smith on 05-26-2023 Eosinophils (Bld) [#/Vol] 0.2 10*3/uL 0.0-0.45 [facility] Eosinophils/100 WBC Auto (Bl d)Ordered By: Jesús Smith on 05-26-2023 Eosinophils/100 WBC (Bld) 2.3 % . [facility] Erythrocyte distribution wid th Auto (RBC) [Ratio]Ordered By: Jesús Smith on 05-26-2023 Erythrocyte distribution width (RBC) [Ratio] 13.6 % 11.9-15.3 [facility] Fibrin D-dimer [Presence] in Platelet poor plasma by Latex agglutinationOrdered By: Jesús Smith on 05-26-2023 Fibrin D-dimer LA Ql (PPP) < 200 ng/mL 0-243 [facility] Comment on above: The reference range for D-dimer is <243 ng/mL D-dimer units.D-dimer results must be used in conjunction with a clinicalpretest probability (PTP) assessment model for deep veinthrombosis (DVT) and pulmonary embolism (PE). Results <230ng/mL d-dimer units can be used as a negative predictor inpatients with low or moderate probability for DVT/PE.Results above the exclusion threshold of 230 ng/ml D-dimerunits for DVT/PE may indicate the need for furtherdiagnostic testing.D-Dimer can be increased in hospitalized patients due toco-morbid conditions.A hematocrit value greater than 55% may lead to inaccurate results in coagulation testing. Patients having hematocrit values >55% require a special collection tube for coagulation studies. Please contact the laboratory at [phone] for redraw instructions. Globulin Calc (S) [Mass/Vol] Ordered By: Jesús Smith on 05-26-2023 Globulin (S) [Mass/Vol] 2.4 g/dL [facility] Glucose [Mass/volume] in Ser um or PlasmaOrdered By: Jesús Smith on 05-26-2023 Glucose [Mass/Vol] 105 mg/dL 70-100 [facility] Comment on above: ADA recommended refe rence rangeRandom Glucose Reference Range is dependent on time and content of last meal. Glucose of more than 200 mg/dL in a nonstressed, ambulatory subject supports the diagnosis of Diabetes Mellitus. Hematocrit Auto (Bld) [Volum e fraction]Ordered By: Jesús Smith on 05-26-2023 Hematocrit (Bld) [Volume fraction] 41.9 % 34.0-46.4 [facility] Hemoglobin [Mass/volume] in BloodOrdered By: Jesús Smith on 05-26-2023 Hemoglobin (Bld) [Mass/Vol] 13.9 g/dL 11.8-15.4 [facility] INR in Platelet poor plasma by Coagulation assayOrdered By: Jesús Smith on 05-26-2023 INR Coag (PPP) [Relative time] 0.9 {INR} [facility] Comment on above: INR Therapeutic Rang e A) Pre- and Peroperative OAT started two weeks before surgery. NOT HIP SURGERY: 1.5 - 2.5 HIP SURGERY: 2 - 3B) Primary and secondary prevention of venous THROMBOSIS: 2 - 3C) Active venous thrombosis, pulmonary embolismand prevention of recurrent venous thrombosis: 2 - 3D) Prevention of arterial thromboembolismincluding patients with mechanical heart valves: 3 - 4.5 Leukocytes [#/volume] correc urvashi for nucleated erythrocytes in Blood by Automated counOrdered By: Jesús Smith on 05-26-2023 WBC corrected for nucl RBC Auto (Bld) [#/Vol] 9.2 10*3/uL 3.8-11.6 [facility] Lymphocytes Auto (Bld) [#/Vo l]Ordered By: Jesús Smith on 05-26-2023 Lymphocytes (Bld) [#/Vol] 2.4 10*3/uL 1.00-4.8 [facility] Lymphocytes/100 WBC Auto (Bl d)Ordered By: Jesús Smith on 05-26-2023 Lymphocytes/100 WBC (Bld) 26.6 % . [facility] MCH Auto (RBC) [Entitic mass ]Ordered By: Jesús Smith on 05-26-2023 MCH (RBC) [Entitic mass] 30.3 pg 24.7-34.3 [facility] MCHC Auto (RBC) [Mass/Vol]Or dered By: Jesús Smith on 05-26-2023 MCHC (RBC) [Mass/Vol] 33.2 g/dL 32.0-35.0 [facility] MCV Auto (RBC) [Entitic vol] Ordered By: Jesús Smith on 05-26-2023 MCV (RBC) [Entitic vol] 91.3 fL 80-100 [facility] Monocyte distribution width [Entitic volume] in Blood by AutomatedOrdered By: Jesús Smith on 05-26-2023 Monocyte distribution width Auto (Bld) [Entitic vol] 16.82 % 0.00-20.00 [facility] Monocytes Auto (Bld) [#/Vol] Ordered By: Jesús Smith on 05-26-2023 Monocytes (Bld) [#/Vol] 0.8 10*3/uL 0.0-0.8 [facility] Monocytes/100 WBC Auto (Bld) Ordered By: Jesús Smith on 05-26-2023 Monocytes/100 WBC (Bld) 8.3 % . [facility] Natriuretic peptide B [Mass/ Vol]Ordered By: Jesús Smith on 05-26-2023 Natriuretic peptide B (Bld) [Mass/Vol] 26.0 pg/mL 5-100 [facility] Neutrophils Auto (Bld) [#/Vo l]Ordered By: Jesús Smith on 05-26-2023 Neutrophils (Bld) [#/Vol] 5.7 10*3/uL 1.8-7.7 [facility] Neutrophils/100 WBC Auto (Bl d)Ordered By: Jesús Smith on 05-26-2023 Neutrophils/100 WBC (Bld) 61.9 % . [facility] No Panel InformationOrdered By: Jesús Smith on 05-26-2023 Estimated GFR (CKD-EPI) > 60.0 mL/Min [facility] Creatinine Clearance (Chem 122.19 [facility] Nucleated erythrocytes [Pres ence] in Blood by Automated countOrdered By: Jesús Smith on 05-26-2023 Nucleated RBC Auto Ql (Bld) 0.1 /100{WBC} 0-0.5 [facility] Platelet mean volume Auto (B ld) [Entitic vol]Ordered By: Jesús Smith on 05-26-2023 Platelet mean volume (Bld) [Entitic vol] 8.1 fL 6.3-10.7 [facility] Platelets Auto (Bld) [#/Vol] Ordered By: Jesús Smith on 05-26-2023 Platelets (Bld) [#/Vol] 289 10*3/uL 150-450 [facility] Potassium [Moles/volume] in Serum or PlasmaOrdered By: Jesús Smith on 05-26-2023 Potassium [Moles/Vol] 4.4 mmol/L 3.5-5.1 [facility] Protein [Mass/volume] in Ser um or PlasmaOrdered By: Jesús Smith on 05-26-2023 Protein [Mass/Vol] 6.4 g/dL 6.4-8.9 [facility] Prothrombin time (PT)Ordered By: Jesús Smith on 05-26-2023 PT Coag (PPP) [Time] 11.0 s 9.0-12.9 [facility] Comment on above: A hematocrit value g reater than 55% may lead to inaccurate results in coagulation testing. Patients having hematocrit values >55% require a special collection tube for coagulation studies. Please contact the laboratory at [phone] for redraw instructions. RBC Auto (Bld) [#/Vol]Ordere d By: Jesús Smith on 05-26-2023 RBC (Bld) [#/Vol] 4.59 10*6/uL 3.60-5.00 [facility] Serum or plasma albumin/glob ulin mass ratioOrdered By: Jesús Smith on 05-26-2023 Albumin/Globulin [Mass ratio] 1.7 {ratio} [facility] Serum or plasma anion gap de terminationOrdered By: Jesús Smith on 05-26-2023 Anion gap [Moles/Vol] 9.6 mmol/L 6.0-15.0 [facility] Sodium [Moles/volume] in Ser um or PlasmaOrdered By: Jesús Smith on 05-26-2023 Sodium [Moles/Vol] 139 mmol/L 136-145 [facility] Troponin I.cardiac [Mass/vol ume] in Serum or Plasma by Detection limit <= 0.01 ng/Ordered By: Jesús Smith on 05-26-2023 Troponin I.cardiac DL <= 0.01 ng/mL [Mass/Vol] 2.9 pg/mL 0.0-15.0 [facility] Urea nitrogen [Mass/volume] in Serum or PlasmaOrdered By: Jesús Smith on 05-26-2023 Urea nitrogen [Mass/Vol] 16 mg/dL 7-25 [facility] WBC Auto (Bld) [#/Vol]Ordere d By: Jesús Smith on 05-26-2023 WBC (Bld) [#/Vol] 9.2 10*3/uL 3.8-11.6 [facility] XR CHEST 2 VWSon 04-12-2023 XR CHEST 2 VWS XR CHEST 2 VWS XR CHEST 2 VWS: 04/12/2023 4:42 PM Clinical: Dyspnea EXAM: CHEST XRAY Comparison: none Views: 2 Findings: Heart size is normal. No acute consolidation, effusion, or pneumothorax. Mild hyperinflation. Impression: * No acute abnormality. Finalized by Virgilio Lundberg MD on 04/12/2023 7:20 PM Normal [facility] CBC AUTO DIFFon 03-27-2022 BASO # 0.1 103/ul Normal 0.0-0.1 [facility] Comment on above: Performed By: #### C BC #### [facility] [place] [facility] [address] [place], [place] [address] Dr. Bruce Mayfield Basophils/100 WBC (Bld) 0.6 % Normal 0.2-2.0 [facility] [place] Comment on above: Performed By: #### C BC #### [facility] [place] [facility] [address] [place], [place] [address] Dr. Bruce Mayfield EO # 0.1 103/ul Normal 0.0-0.7 [facility] Comment on above: Performed By: #### C BC #### [facility] [place] [facility] [address] [place] [address] Dr. Bruce Mayfield Eosinophils/100 WBC (Bld) 1.1 % Normal 0.9-7.0 [facility] Comment on above: Performed By: #### C BC #### [facility] [place] [facility] [address] [place] [address] Dr. Bruce Mayfield Erythrocyte distribution width (RBC) [Ratio] 12.9 % Normal 11.0-15.0 [facility] Comment on above: Performed By: #### C BC #### [facility] [place] [facility] [address] [place] [address] Dr. Bruce Mayfield Hematocrit (Bld) [Volume fraction] 40.9 % Normal 36.0-48.0 [facility] Comment on above: Performed By: #### C BC #### [facility] [place] [facility] [address] [place] [address] Dr. Bruce Mayfield Hemoglobin (Bld) [Mass/Vol] 13.9 g/dL Normal 12.0-16.0 [facility] Comment on above: Performed By: #### C BC #### [facility] [place] [facility] [address] [place] [address] Dr. Bruce Mayfield IG # 0.10 10e3/ul Critically high 0.00-0.03 [facility] Comment on above: Performed By: #### C BC #### [facility] [place] [facility] [address] [place] [address] Dr. Bruce Mayfield IG % 0.9 % Critically high 0.0-0.5 [facility] [place] Comment on above: Performed By: #### C BC #### [facility] [place] [facility] [address] [place] [address] Dr. Bruce Mayfield LYMPH # 2.8 103/ul Normal 1.2-3.8 [facility] [place] Comment on above: Performed By: #### C BC #### [facility] [place] [facility] [address] [place] [address] Dr. Bruce Mayfield Lymphocytes/100 WBC (Bld) 26.5 % Normal 20.5-60.0 [facility] Comment on above: Performed By: #### C BC #### [facility] [place] [facility] [address] [place] [address] Dr. Bruce Mayfield MANUAL DIFF REQ NO Normal [facility] Comment on above: Performed By: #### C BC #### [facility] [place] [facility] [address] [place] [address] Dr. Bruce Mayfield MCH (RBC) [Entitic mass] 30.0 pg Normal 26.7-34.0 [facility] Comment on above: Performed By: #### C BC #### [facility] [place] [facility] [address] [place] [address] Dr. Bruce Mayfield MCHC (RBC) [Mass/Vol] 34.0 g/dL Normal 29.9-35.2 [facility] Comment on above: Performed By: #### C BC #### [facility] [place] [facility] [address] [place] [address] Dr. Bruce Mayfield MCV (RBC) [Entitic vol] 88.1 fL Normal 81.0-99.0 [facility] Comment on above: Performed By: #### C BC #### [facility] [place] [facility] [address] [place] [address] Dr. Bruce Mayfield MONO # 0.8 103/ul Normal 0.3-0.8 [facility] Comment on above: Performed By: #### C BC #### [facility] [place] [facility] [address] [place] [address] Dr. Bruce Mayfield Monocytes/100 WBC (Bld) 7.1 % Normal 1.7-12.0 [facility] Comment on above: Performed By: #### C BC #### [facility] [place] [facility] [address] [place] [address] Dr. Bruce Mayfield NEUT # 6.7 103/ul Critically high 1.4-6.5 [facility] [place] Comment on above: Performed By: #### C BC #### [facility] [place] [facility] [address] [place] [address] Dr. Bruce Mayfield Neutrophils/100 WBC (Bld) 63.8 % Normal 43.0-75.0 [facility] [place] Comment on above: Performed By: #### C BC #### [facility] [place] [facility] [address] [place] [address] Dr. Bruce Mayfield Platelet mean volume (Bld) [Entitic vol] 9.3 fL Critically low 9.5-13.5 [facility] Comment on above: Performed By: #### C BC #### [facility] [place] [facility] [address] [place] [address] Dr. Bruce Mayfield PLT 318 103/ul Normal 150-450 [facility] [place] Comment on above: Performed By: #### C BC #### [facility] [place] [facility] [address] [place] [address] Dr. Bruce Mayfield RBC 4.64 106/ul Normal 4.20-5.40 [facility] [place] Comment on above: Performed By: #### C BC #### [facility] [place] [facility] [address] [place] [address] Dr. Bruce Mayfield WBC 10.6 103/ul Normal 4.0-11.0 [facility] Comment on above: Performed By: #### C BC #### [facility] [place] [facility] [address] [place] [address] Dr. Bruce Mayfield PROF CHEM 8 (BAS METB)on Anion gap [Moles/Vol] 11.7 mmol/L Normal Th [facility] Comment on above: Performed By: #### B MP, TSH #### [facility] [place] [facility] [address] [place] [address] Dr. Bruce Mayfield Calcium [Mass/Vol] 9.0 mg/dL Normal 8.5-10.1 [facility] [place] Comment on above: Performed By: #### B MP, TSH #### [facility] [place] [facility] [address] [place] [address] Dr. Bruce Mayfield Chloride [Moles/Vol] 105 mmol/L Normal 98-107 [facility] [place] Comment on above: Performed By: #### B MP, TSH #### [facility] [place] [facility] [address] [place] [address] Dr. Bruce Mayfield CO2 [Moles/Vol] 29.7 mmol/L Normal 21.0-32.0 [facility] Comment on above: Performed By: #### B MP, TSH #### [facility] [place] [facility] [address] [place] [address] [address] Bruce Mayfield Creatinine [Mass/Vol] 0.71 mg/dL Normal 0.55-1.02 [facility] [place] Comment on above: Performed By: #### B MP, TSH #### [facility] [place] [facility] [address] [place] [address] Dr. Bruce Mayfield EGFR-AF ERITREAN >60 Normal >=60 [facility] [place] Comment on above: Performed By: #### B MP, TSH #### [facility] [place] [facility] [address] [place] [address] Dr. Bruce Mayfield EGFR-NON AF ERITREAN >60 Normal >=60 [facility] [place] Comment on above: Performed By: #### B MP, TSH #### [facility] [place] [facility] [address] [place] [address] Dr. Bruce Mayfield Glucose [Mass/Vol] 95 mg/dL Normal 74-106 [facility] [place] Comment on above: Performed By: #### B MP, TSH #### [facility] [place] [facility] [address] [place] [address] Dr. Bruce Mayfield Potassium [Moles/Vol] 4.4 mmol/L Normal 3.5-5.1 [facility] [place] Comment on above: Performed By: #### B MP, TSH #### [facility] [place] [facility] [address] [place] [address] Dr. Bruce Mayfield Sodium [Moles/Vol] 142 mmol/L Normal 136-145 [facility] [place] Comment on above: Performed By: #### B MP, TSH #### [facility] [place] [facility] [address] [place] [address] Dr. Bruce Mayfield Urea nitrogen [Mass/Vol] 19.0 mg/dL Critically high 7.0-18.0 [facility] [place] Comment on above: Performed By: #### B MP, TSH #### [facility] [place] [facility] [address] [place] [address] Dr. Bruce Mayfield Urea nitrogen/Creatinine [Mass ratio] 26.8 mg/mg Normal [facility] [place] Comment on above: Performed By: #### B MP, TSH #### [facility] [place] [facility] [address] [place], [place] [address] Dr. Bruce Mayfield TSHon 03-27-2022 TSH 4.381 uIU/mL Critically high 0.358-3.74 0 [facility] Comment on above: Performed By: #### B , TSH #### [facility] [place] [facility] [address] [place], [place] [address] Dr. Bruce Mayfield US SINGLE QUAD RT UPPERon US SINGLE QUAD RT UPPER Ultrasound abdomen right upper quadrant HISTORY: Right upper quadrant pain COMPARISON: None. TECHNIQUE: Dedicated transabdominal right upper quadrant ultrasound was performed. FINDINGS: The gallbladder is contracted without focal wall abnormality. There is no discrete gallstone identified. No sludge is seen. The gallbladder wall measures 1.3 cm in thickness. No pericholecystic fluid is seen, and the sonographic Spicer's sign is negative. The proximal common bile duct measures 3.4 mm in diameter. There is no intrahepatic bile duct dilatation. The liver measures 19.5 cm, with diffusely increased echogenicity. There is poor sonographic penetration into the liver parenchyma for further evaluation. Pancreas is not well seen. The right kidney measures 10.9 x 5.0 x 5.7 cm. There is a small extrarenal pelvis without hydronephrosis in the right kidney. There is no fluid in the right upper quadrant. IMPRESSION: 1. Contracted gallbladder without gallstones, sludge, or sonographic evidence of acute cholecystitis. 2. Hepatomegaly and diffuse fatty infiltration of the liver. 3. Normal caliber common bile duct at 3.4 mm. 4. Right kidney with small extra renal pelvis. No hydronephrosis. Electronically authenticated by: NICOLASA FIELDS Date: 2022-03-27 13:07 Normal [facility] XR CHEST 1 Von 02-17-2022 XR CHEST 1 V EXAM: XR CHEST 1 V REASON FOR EXAM: Female, 56 years, COUGH. TECHNIQUE: A single AP view of the chest is performed. COMPARISON: 03/27/2020. FINDINGS: The lungs are expanded and clear. Normal pleura. Normal size heart. Normal mediastinum and delmar. Normal visualized pulmonary arteries. Normal visualized aortic arch and descending thoracic aorta. Normal visualized thoracic spine. Normal visualized ribs, clavicles, and shoulders. There is no demonstrated abnormality of the visualized soft tissue structures of the upper abdomen. IMPRESSION: Normal examination of the chest. Electronically authenticated by: DEBBIManoj GREEN Date: 2022-02-17 17:48 Normal [facility] [place] [facility]on SARS-CoV-2 (COVID-19) RNA LAWRENCE+probe Ql (Unsp spec) Detected Critically abnormal NOT DETECTED [facility] [place] Comment on above: Result Comment: This test is not yet approved or cleared by the [place] FDA. When there are no FDA-approved or cleared tests available, and other criteria are met, FDA can make tests available under an emergency access mechanism called an Emergency Use Authorization (EUA). The EUA for this test is supported by the Counter Tacker of Health and Human Service's declaration that circumstances exist to justify the emergency use of in vitro diagnostics for the detection and/or diagnosis of the virus that causes COVID-19. This EUA will remain in effect for the duration of the COVID-19 declaration justifying emergency of IVDs, unless it is terminated or revoked by the FDA (after which the test may no longer be used). Performed By: #### B MP #### [facility] [place] [facility] [address] [place] [address] Dr. Bruce Mayfield CBC AUTO DIFFon 01-30-2022 BASO # 0.0 103/ul Normal 0.0-0.1 [facility] Comment on above: Performed By: #### C BC #### [facility] [place] [facility] [address] [place] [address] Dr. Bruce Mayfield Basophils/100 WBC (Bld) 0.4 % Normal 0.2-2.0 [facility] Comment on above: Performed By: #### C BC #### [facility] [place] [facility] [address] [place] [address] Dr. Bruce Mayfield EO # 0.2 103/ul Normal 0.0-0.7 [facility] [place] Comment on above: Performed By: #### C BC #### [facility] [place] [facility] [address] [place] [address] Dr. Bruce Mayfield Eosinophils/100 WBC (Bld) 1.9 % Normal 0.9-7.0 [facility] Comment on above: Performed By: #### C BC #### [facility] [place] [facility] [address] [place] [address] Dr. Bruce Mayfield Erythrocyte distribution width (RBC) [Ratio] 12.7 % Normal 11.0-15.0 [facility] Comment on above: Performed By: #### C BC #### [facility] [place] [facility] [address] [place] [address] Dr. Bruce Mayfield Hematocrit (Bld) [Volume fraction] 42.6 % Normal 36.0-48.0 [facility] Comment on above: Performed By: #### C BC #### [facility] [place] [facility] [address] [place] [address] Dr. Bruce Mayfield Hemoglobin (Bld) [Mass/Vol] 14.0 g/dL Normal 12.0-16.0 [facility] Comment on above: Performed By: #### C BC #### [facility] [place] [facility] [address] [place] [address] Dr. Bruce Mayfield IG # 0.04 10e3/ul Critically high 0.00-0.03 [facility] Comment on above: Performed By: #### C BC #### [facility] [place] [facility] [address] [place] [address] Dr. Bruce Mayfield IG % 0.4 % Normal 0.0-0.5 [facility] Comment on above: Performed By: #### C BC #### [facility] [place] [facility] [address] [place] [address] Dr. Bruce Mayfield LYMPH # 2.3 103/ul Normal 1.2-3.8 [facility] Comment on above: Performed By: #### C BC #### [facility] [place] [facility] [address] [place] [address] Dr. Bruce Mayfield Lymphocytes/100 WBC (Bld) 22.6 % Normal 20.5-60.0 [facility] Comment on above: Performed By: #### C BC #### [facility] [place] [facility] [address] [place] [address] Dr. Bruce Mayfield MANUAL DIFF REQ NO Normal [facility] Comment on above: Performed By: #### C BC #### [facility] [place] [facility] [address] [place] [address] Dr. Bruce Mayfield MCH (RBC) [Entitic mass] 30.0 pg Normal 26.7-34.0 [facility] [place] Comment on above: Performed By: #### C BC #### [facility] [place] [facility] [address] [place] [address] Dr. Bruce Mayfield MCHC (RBC) [Mass/Vol] 32.9 g/dL Normal 29.9-35.2 [facility] [place] Comment on above: Performed By: #### C BC #### [facility] [place] [facility] [address] [place] [address] Dr. Bruce Mayfield MCV (RBC) [Entitic vol] 91.4 fL Normal 81.0-99.0 [facility] [place] Comment on above: Performed By: #### C BC #### [facility] [place] [facility] [address] [place] [address] Dr. Bruce Mayfield MONO # 0.7 103/ul Normal 0.3-0.8 [facility] [place] Comment on above: Performed By: #### C BC #### [facility] [place] [facility] [address] [place] [address] Dr. Bruce Mayfield Monocytes/100 WBC (Bld) 6.5 % Normal 1.7-12.0 [facility] [place] Comment on above: Performed By: #### C BC #### [facility] [place] [facility] [address] [place] [address] Dr. Bruce Mayfield NEUT # 6.9 103/ul Critically high 1.4-6.5 [facility] [place] Comment on above: Performed By: #### C BC #### [facility] [place] [facility] [address] [place] [address] Dr. Bruce Mayfield Neutrophils/100 WBC (Bld) 68.2 % Normal 43.0-75.0 [facility] [place] Comment on above: Performed By: #### C BC #### [facility] [place] [facility] [address] [place] [address] Dr. Bruce Mayfield Platelet mean volume (Bld) [Entitic vol] 9.6 fL Normal 9.5-13.5 [facility] [place] Comment on above: Performed By: #### C BC #### [facility] [place] [facility] [address] [place] [address] Dr. Bruce Mayfield PLT 279 103/ul Normal 150-450 [facility] Comment on above: Performed By: #### C BC #### [facility] [place] [facility] [address] [place] [address] Dr. Bruce Mayfield RBC 4.66 106/ul Normal 4.20-5.40 [facility] Comment on above: Performed By: #### C BC #### [facility] [place] [facility] [address] [place] [address] Dr. Bruce Mayfield WBC 10.2 103/ul Normal 4.0-11.0 [facility] Comment on above: Performed By: #### C BC #### [facility] [place] [facility] [address] [place] [address] Dr. Bruce Mayfield ER URINE PROFILEon 2 Bilirubin Ql (U) Negative Normal NEGATIVE [facility] Comment on above: Performed By: #### B MP #### [facility] [place] [facility] [address] [place] [address] Dr. Bruce Mayfield Clarity (U) CLEAR Normal CLEAR [facility] Comment on above: Performed By: #### B MP #### [facility] [place] [facility] [address] [place] [address] Dr. Bruce Mayfield Color (U) LT. YELLOW Normal YELLOW [facility] Comment on above: Performed By: #### B MP #### [facility] [place] [facility] [address] [place] [address] Dr. Bruce Mayfield ERUNATAN A micrscopic examina tion will be performed if indicated. Normal [facility] [place] Comment on above: Performed By: #### B MP #### [facility] [place] [facility] [address] [place] [address] Dr. Bruce Mayfield Glucose Ql (U) Negative Normal NEGATIVE [facility] [place] Comment on above: Performed By: #### B MP #### [facility] [place] [facility] [address] [place] [address] Dr. Bruce Mayfield Hemoglobin Ql (U) Negative Normal NEGATIVE [facility] [place] Comment on above: Performed By: #### B MP #### [facility] [place] [facility] [address] [place] [address] Dr. Bruce Mayfield Ketones Ql (U) Negative Normal NEGATIVE [facility] Comment on above: Performed By: #### B MP #### [facility] [place] [facility] [address] [place] [address] Dr. Bruce Mayfield LEUKOCYTES Negative Normal NEGATIVE [facility] Comment on above: Performed By: #### B MP #### [facility] [place] [facility] [address] [place] [address] Dr. Bruce Mayfield Nitrite Ql (U) Negative Normal NEGATIVE [facility] Comment on above: Performed By: #### B MP #### [facility] [place] [facility] [address] [place] [address] Dr. Bruce Mayfield pH (U) 7.5 [pH] Normal 5-9 [facility] Comment on above: Performed By: #### B MP #### [facility] [place] [facility] [address] [place] [address] Dr. Bruce Mayfield SPEC GRAVITY 1.020 Normal 1.005-<=1. 025 [facility] Comment on above: Performed By: #### B MP #### [facility] [place] [facility] [address] [place] [address] Dr. Bruce Mayfield UA PROTEIN Negative Normal NEGATIVE/ TRACE [facility] [place] Comment on above: Performed By: #### B MP #### [facility] [place] [facility] [address] [place] [address] Dr. Bruce Mayfield UR MICRO IND NOT INDICATED Normal [facility] [place] Comment on above: Performed By: #### B MP #### [facility] [place] [facility] [address] [place] [address] Dr. Bruce Mayfield Urobilinogen Qn (U) 0.2 {Stefania'U}/dL Normal 0.2 - 1. 0 [facility] Comment on above: Performed By: #### B MP #### [facility] [place] [facility] [address] [place] [address] Dr. Bruce Mayfield PROF CHEM 8 (BAS METB)on Anion gap [Moles/Vol] 10.3 mmol/L Normal Th [facility] Comment on above: Performed By: #### B MP #### [facility] [place] [facility] [address] [place] [address] [address] Bruce Mayfield Calcium [Mass/Vol] 9.4 mg/dL Normal 8.5-10.1 [facility] Comment on above: Performed By: #### B MP #### [facility] [place] [facility] [address] [place] [address] [address] Bruce Mayfield Chloride [Moles/Vol] 102 mmol/L Normal 98-107 [facility] [place] Comment on above: Performed By: #### B MP #### [facility] [place] [facility] [address] [place] [address] [address] Bruce Mayfield CO2 [Moles/Vol] 30.6 mmol/L Normal 21.0-32.0 [facility] Comment on above: Performed By: #### B MP #### [facility] [place] [facility] [address] [place] [address] Dr. Bruce Mayfield Creatinine [Mass/Vol] 0.60 mg/dL Normal 0.55-1.02 [facility] Comment on above: Performed By: #### B MP #### [facility] [place] [facility] [address] [place] [address] Dr. Bruce Mayfield EGFR-AF ERITREAN >60 Normal >=60 [facility] [place] Comment on above: Performed By: #### B MP #### [facility] [place] [facility] [address] [place] [address] Dr. Bruce Mayfield EGFR-NON AF ERITREAN >60 Normal >=60 [facility] Comment on above: Performed By: #### B MP #### [facility] [place] [facility] [address] [place] [address] [address] Bruce Mayfield Glucose [Mass/Vol] 111 mg/dL Critically high 74-106 [facility] Comment on above: Performed By: #### B MP #### [facility] [place] [facility] [address] [place] [address] Dr. Bruce Mayfield Potassium [Moles/Vol] 3.9 mmol/L Normal 3.5-5.1 [facility] Comment on above: Performed By: #### B MP #### [facility] [place] [facility] [address] [place] [address] Dr. Bruce Mayfield Sodium [Moles/Vol] 139 mmol/L Normal 136-145 [facility] Comment on above: Performed By: #### B MP #### [facility] [place] [facility] [address] [place] [address] [address] Bruce Mayfield Urea nitrogen [Mass/Vol] 17.0 mg/dL Normal 7.0-18.0 [facility] Comment on above: Performed By: #### B MP #### [facility] [place] [facility] [address] [place] [address] [address] Bruce Mayfield Urea nitrogen/Creatinine [Mass ratio] 28.3 mg/mg Normal [facility] Comment on above: Performed By: #### B MP #### [facility] [place] [facility] [address] [place] [address] [address] Bruce Mayfield MRI CSPINE WO CONon 11-19-19 MRI CSPINE WO CON EXAMINATION: MRI CSP INE WO CON HISTORY: Neck pain COMPARISON: No relevant comparison available. TECHNIQUE: A variety of imaging planes and parameters were utilized for visualization of suspected pathology. FINDINGS: CRANIOCERVICAL AREA: Normal foramen magnum with no Chiari malformation. PARASPINAL AREA: Normal with no visible mass. BONES: Loss of normal cervical lordosis. 2 mm anterolisthesis of C3 on C4. No acute fracture, dislocation or bone edema CORD: Normal caliber, contour, and signal intensity. CERVICAL DISC LEVELS: C2-C3: Early degenerative disc disease is present without focal protrusion or neural impingement. C3-C4: 2 mm anterolisthesis of C3 on C4 with mild disc/osteophyte complex. No central canal stenosis. No right foraminal stenosis. Mild left foraminal stenosis C4-C5: Mild disc space narrowing and disc desiccation. Mild diffuse disc/osteophyte complex. No central or foraminal stenosis C5-C6: Moderate to severe disc space narrowing. Moderate diffuse disc/osteophyte complex. This minimally deforms the ventral spinal cord with narrowing of the central canal to 9 mm. Mild bilateral foraminal stenosis C6-C7: No significant disc/facet abnormality, spinal stenosis, or foraminal stenosis. C7-T1:. No significant disc/facet abnormality, spinal stenosis, or foraminal stenosis. IMPRESSION: Degenerative changes most significant at C5-C6 where there is mild bilateral foraminal stenosis Electronically authenticated by: JOSIANE JONES Date: 2021-11-18 09:07 Normal [facility] [place] XR CSPINE MIN 4 VIEWSon 05-30 XR CSPINE MIN 4 VIEWS EXAM: XR CSPINE DE N 4 VIEWS HISTORY: Neck pain COMPARISON: None. TECHNIQUE: 5 radiographic views of the cervical spine FINDINGS: 7 cervical vertebral bodies. Vertebral body heights maintained. Discogenic degeneration at C5-6. Grade 1 anterolisthesis of C3 on C4. Straightening of normal cervical lordosis. Osseous neural foraminal narrowing at C3-4 bilaterally and C4-5 on the right secondary to facet hypertrophy. Clear lung apices. Right cervical carotid calcifications. IMPRESSION: Moderate cervical discogenic and facet degeneration, worst at C5-6. Electronically authenticated by: ERWIN PAVON Date: 2021-06-20 16:31 Normal [facility] [place] CBC W MANUAL DIFFon 06-04-19 22 ATYPICAL LYMPH # 0.14 103/ul Normal [facility] Comment on above: Performed By: #### C BRITTNEY #### [facility] [place] [facility] [address] [place] [address] Dr. Bruce Mayfield ATYPICAL LYMPH % 1 % Normal [facility] [place] Comment on above: Performed By: #### C BRITTNEY #### [facility] [place] [facility] [address] [place] [address] Dr. Bruce Mayfield BAND # 0.7 103/ul Critically high 0.0-0.3 [facility] Comment on above: Performed By: #### C BRITTNEY #### [facility] [place] [facility] [address] [place] [address] Dr. Bruce Mayfield BAND % 5 % Normal 0-5 [facility] [place] Comment on above: Performed By: #### C BCNINA #### [facility] [place] [facility] [address] [place] [address] Dr. Bruce Mayfield BASOM # 0.00 103/ul Normal 0.00-0.10 [facility] [place] Comment on above: Performed By: #### C BCNINA #### [facility] [place] [facility] [address] [place] [address] Dr. Bruce Mayfield BASOM % 0.0 % Critically low 0.2-2.0 [facility] Comment on above: Performed By: #### C BRITTNEY #### [facility] [place] [facility] [address] [place] [address] Dr. Bruce Mayfield BLAST # Normal [facility] Comment on above: Performed By: #### C BRITTNEY #### [facility] [place] [facility] [address] [place] [address] Dr. Bruce Mayfield BLAST % Normal [facility] Comment on above: Performed By: #### C BRITTNEY #### [facility] [place] [facility] [address] [place] [address] Dr. Bruce Mayfield CORRECTED WBC Normal 4.0-11.0 [facility] Comment on above: Performed By: #### C BRITTNEY #### [facility] [place] [facility] [address] [place] [address] Dr. Bruce Mayfield EOS # 0.00 103/ul Normal 0.00-0.70 [facility] Comment on above: Performed By: #### C BRITTNEY #### [facility] [place] [facility] [address] [place] [address] Dr. Bruce Mayfield EOS% 0.0 % Critically low 0.9-7.0 [facility] Comment on above: Performed By: #### C BRITTNEY #### [facility] [place] [facility] [address] [place] [address] Dr. Bruce Mayfield HCT 45.9 % Normal 36.0-48.0 [facility] Comment on above: Performed By: #### C BRITTNEY #### [facility] [place] [facility] [address] [place] [address] Dr. Bruce Mayfield HGB 15.1 g/dl Normal 12.0-16.0 [facility] Comment on above: Performed By: #### C BRITTNEY #### [facility] [place] [facility] [address] [place] [address] Dr. Bruce Mayfield LYMPHM # 0.57 103/ul Critically low 1.20-3.80 [facility] Comment on above: Performed By: #### C BRITTNEY #### [facility] [place] [facility] [address] [place] [address] Dr. Bruce Mayfield LYMPHM% 4.0 % Critically low 20.5-60.0 [facility] Comment on above: Performed By: #### C BRITTNEY #### [facility] [place] [facility] [address] [place] [address] Dr. Bruce Mayfield MCH 30.4 pg Normal 26.7-34.0 [facility] Comment on above: Performed By: #### C BRITTNEY #### [facility] [place] [facility] [address] [place] [address] Dr. Bruce Mayfield MCHC 32.9 g/dl Normal 29.9-35.2 [facility] Comment on above: Performed By: #### C BRITTNEY #### [facility] [place] [facility] [address] [place] [address] Dr. Bruce Mayfield MCV 92.5 fL Normal 81.0-99.0 [facility] Comment on above: Performed By: #### C BRITTNEY #### [facility] [place] [facility] [address] [place] [address] Dr. Bruce Mayfield METAMYELOCYTE # Normal [facility] [place] Comment on above: Performed By: #### C BRITTNEY #### [facility] [place] [facility] [address] [place] [address] Dr. Bruce Mayfield METAMYELOCYTE % Normal [facility] [place] Comment on above: Performed By: #### C BRITTNEY #### [facility] [place] [facility] [address] [place] [address] Dr. Bruce Mayfield MONOM# 0.43 103/ul Normal 0.30-0.80 [facility] Comment on above: Performed By: #### C BRITTNEY #### [facility] [place] [facility] [address] [place] [address] Dr. Bruce Mayfield MONOM% 3.0 % Normal 1.7-12.0 [facility] [place] Comment on above: Performed By: #### C BRITTNEY #### [facility] [place] [facility] [address] [place] [address] Dr. Bruce Mayfield MPV 9.4 fL Critically low 9.5-13.5 [facility] Comment on above: Performed By: #### C BRITTNEY #### [facility] [place] [facility] [address] [place] [address] Dr. Bruce Mayfield MYELOCYTE # Normal [facility] [place] Comment on above: Performed By: #### C BRITTNEY #### [facility] [place] [facility] [address] [place] [address] [address] Bruce Mayfield MYELOCYTE % Normal [facility] Comment on above: Performed By: #### C BRITTNEY #### [facility] [place] [facility] [address] [place] [address] Dr. Bruce Mayfield NRBC Normal [facility] Comment on above: Performed By: #### C BRITTNEY #### [facility] [place] [facility] [address] [place] [address] Dr. rBuce Mayfield PLT 282 103/ul Normal 150-450 [facility] Comment on above: Performed By: #### C BRITTNEY #### [facility] [place] [facility] [address] [place] [address] Dr. Bruce Mayfield RBC 4.96 106/ul Normal 4.20-5.40 [facility] Comment on above: Performed By: #### C BRITTNEY #### [facility] [place] [facility] [address] [place] [address] Dr. Bruce Mayfield RDW 13.1 % Normal 11.0-15.0 [facility] Comment on above: Performed By: #### C BRITTNEY #### [facility] [place] [facility] [address] [place] [address] Dr. Bruce Mayfield SEG # 12.35 103/ul Critically high 1.40-6.50 [facility] Comment on above: Performed By: #### C BRITTNEY #### [facility] [place] [facility] [address] [place] [address] Dr. Bruce Mayfield SEG % 87.0 % Critically high 43.0-75.0 [facility] Comment on above: Performed By: #### C BRITTNEY #### [facility] [address] [place] [address] Dr. Bruce Mayfield WBC 14.2 103/ul Critically high 4.0-11.0 [facility] Comment on above: Performed By: #### C BRITTNEY #### [facility] [address] [place] [address] Dr. Bruce Mayfield PROF 14(COMP METB)on 022 Albumin [Mass/Vol] 3.6 g/dL Normal 3.4-5.0 [facility] Comment on above: Performed By: #### B MP #### [facility] [address] [place] [address] Dr. Bruce Mayfield Albumin/Globulin [Mass ratio] 1.1 {ratio} Normal [facility] Comment on above: Performed By: #### B MP #### [facility] [address] [address] [address] Bruce Mayfield ALP [Catalytic activity/Vol] 97 U/L Normal 46-116 [facility] Comment on above: Performed By: #### B MP #### [facility] [address] [place] [address] Dr. Bruce Mayfield ALT [Catalytic activity/Vol] 45 U/L Normal 14-59 [facility] Comment on above: Performed By: #### B MP #### [facility] [address] [place] [address] Dr. Bruce Mayfield Anion gap [Moles/Vol] 15.4 mmol/L Normal [facility] Comment on above: Performed By: #### B MP #### [facility] [address] [place] [address] Dr. Bruce Mayfield AST [Catalytic activity/Vol] 18 U/L Normal 15-37 [facility] Comment on above: Performed By: #### B MP #### [facility] [address] [place] [address] Dr. Bruce Mayfield Bilirubin [Mass/Vol] 0.7 mg/dL Normal 0.2-1.3 [facility] Comment on above: Performed By: #### B MP #### [facility] [address] [place] [address] Dr. Bruce Mayfield Calcium [Mass/Vol] 8.3 mg/dL Critically low 8.5-10.1 [facility] Comment on above: Performed By: #### B MP #### [facility] [address] [place] [address] Dr. Bruce Mayfield Chloride [Moles/Vol] 105 mmol/L Normal 98-107 [facility] Comment on above: Performed By: #### B MP #### [facility] [address] [address] [address] Bruce Mayfield CO2 [Moles/Vol] 23.9 mmol/L Normal 22.0-30.0 [facility] Comment on above: Performed By: #### B MP #### [facility] [address] [address] [address] Bruce Mayfield Creatinine [Mass/Vol] 0.88 mg/dL Normal 0.52-1.04 [facility] Comment on above: Performed By: #### B MP #### [facility] [address] [address] [address] Bruce Mayfield EGFR-AF ERITREAN >60 Normal >=60 [facility] Comment on above: Performed By: #### B MP #### [facility] [address] [place] [address] Dr. Bruce Mayfield EGFR-NON AF ERITREAN >60 Normal >=60 [facility] Comment on above: Performed By: #### B MP #### [facility] [address] [place] [address] Dr. Bruce Mayfield Globulin (S) [Mass/Vol] 3.3 g/dL Normal [facility] Comment on above: Performed By: #### B MP #### [facility] [address] [place] [address] Dr. Bruce Mayfield Glucose [Mass/Vol] 132 mg/dL Critically high 74-106 [facility] Comment on above: Performed By: #### B MP #### [facility] [address] [place] [address] Dr. Bruce Mayfield Potassium [Moles/Vol] 4.3 mmol/L Normal 3.4-5.0 [facility] Comment on above: Performed By: #### B MP #### [facility] [address] [place] [address] Dr. Bruce Mayfield Protein [Mass/Vol] 6.9 g/dL Normal 6.1-8.2 [facility] Comment on above: Performed By: #### B MP #### [facility] [address] [address] [address] Bruce Mayfield Sodium [Moles/Vol] 140 mmol/L Normal 137-145 [facility] Comment on above: Performed By: #### B MP #### [facility] [address] [address] [address] Bruce Mayfield Urea nitrogen [Mass/Vol] 25.0 mg/dL Critically high 7.0-18.0 [facility] Comment on above: Performed By: #### B MP #### [facility] [address] [address] [address] Bruce Mayfield Urea nitrogen/Creatinine [Mass ratio] 28.4 mg/mg Normal [facility] Comment on above: Performed By: #### B MP #### [facility] [address] [address] [address] Bruce Mayfield Vital Signs Date Time Vital Sign Value Performing Clinician Facility 05-28-2024 15:49-0400 Body mass index (BMI) [Ratio] 36.49 kg/m2 Ghassan Visci DO Work Phone: [facility] 05-28-2024 15:49-0400 Body weight 105.69 kg Ghassan Visci DO Work Phone: [facility] 05-28-2024 15:49-0400 Diastolic blood pressure 74 mm[Hg] Ghassan Visci DO Work Phone: [facility] 05-28-2024 15:49-0400 Systolic blood pressure 120 mm[Hg] Ghassan Visci DO Work Phone: [facility] 04-30-2024 12:30-0500 Body mass index (BMI) [Ratio] 36.18 kg/m2 Ghassan Visci DO Work Phone: [facility] 04-30-2024 12:30-0500 Body weight 104.78 kg Ghassan Visci DO Work Phone: [facility] 04-30-2024 12:30-0500 Diastolic blood pressure 82 mm[Hg] Ghassan Visci DO Work Phone: [facility] 04-30-2024 12:30-0500 Systolic blood pressure 128 mm[Hg] Ghassan Bae DO Work Phone: [facility] 03-30-2024 13:50-0500 Body height 171.45 cm [facility] 03-30-2024 13:50-0500 Body mass index (BMI) [Ratio] 35.6 kg/m2 [facility] 03-30-2024 13:50-0500 Body temperature 97.8 [degF] [facility] 03-30-2024 13:50-0500 Body weight 104.77 kg [facility] 03-30-2024 13:50-0500 Diastolic blood pressure 75 mm[Hg] [facility] 03-30-2024 13:50-0500 Heart rate 84 /min [facility] 03-30-2024 13:50-0500 Systolic blood pressure 106 mm[Hg] [facility] 01-12-2024 11:44-0500 Body height 171.45 cm [facility] 01-12-2024 11:44-0500 Body mass index (BMI) [Ratio] 35.4 kg/m2 [facility] 01-12-2024 11:44-0500 Body weight 104.32 kg [facility] 01-12-2024 11:44-0500 Diastolic blood pressure 66 mm[Hg] [facility] 01-12-2024 11:44-0500 Heart rate 71 /min [facility] 01-12-2024 11:44-0500 Systolic blood pressure 93 mm[Hg] [facility] 11-24-2023 13:08-0400 Body height 171.45 cm [facility] 11-24-2023 13:08-0400 Body mass index (BMI) [Ratio] 35 kg/m2 [facility] 11-24-2023 13:08-0400 Body weight 102.96 kg [facility] 11-24-2023 13:08-0400 Diastolic blood pressure 78 mm[Hg] [facility] 11-24-2023 13:08-0400 Heart rate 80 /min [facility] 11-24-2023 13:08-0400 Systolic blood pressure 117 mm[Hg] [facility] 05-26-2023 04:14-0400 Diastolic blood pressure 82 mm[Hg] MD Anthony Easton Work Phone: [facility] 05-26-2023 04:14-0400 Heart rate 73 /min MD Anthony Easton Work Phone: [facility] 05-26-2023 04:14-0400 Respiratory rate 20 /min MD Anthony Easton Work Phone: [facility] 05-26-2023 04:14-0400 SaO2% (BldA) [Mass fraction] 99 % MD Anthony Easton Work Phone: [facility] 05-26-2023 04:14-0400 Systolic blood pressure 146 mm[Hg] MD Anthony Easton Work Phone: [facility] 05-26-2023 01:28-0400 Body height 170.18 cm MD Anthony Easton Work Phone: [facility] 05-26-2023 01:28-0400 Body temperature 97.4 [degF] MD Anthony Easton Work Phone: [facility] 05-26-2023 01:28-0400 Body weight 104 kg MD Anthony Easton Work Phone: [facility] 04-12-2023 09:50-0500 Body height 170.18 cm MD Anthony Easton Work Phone: [facility] 04-12-2023 09:50-0500 Body mass index (BMI) [Ratio] 35.7 kg/m2 MD Anthony Easton Work Phone: [facility] 04-12-2023 09:50-0500 Body weight 103.53 kg MD Anthony Easton Work Phone: [facility] 04-12-2023 09:50-0500 Diastolic blood pressure 72 mm[Hg] MD Anthony Easton Work Phone: [facility] 04-12-2023 09:50-0500 Heart rate 84 /min MD Anthony Easton Work Phone: [facility] 04-12-2023 09:50-0500 SaO2% (BldA) [Mass fraction] 97 % MD Anthony Easton Work Phone: [facility] 04-12-2023 09:50-0500 Systolic blood pressure 108 mm[Hg] MD Anthony Easton Work Phone: [facility] 02-09-2023 08:30-0500 Body height 171.45 cm Anthony Easton Other [facility] 02-09-2023 08:30-0500 Body mass index (BMI) [Ratio] 35.3 kg/m2 Anthony Easton Other [facility] [employer] Other 02-09-2023 08:30-0500 Body temperature 98 [degF] Anthony Easton Other [facility] [employer] Other 02-09-2023 08:30-0500 Body weight 103.78 kg Anthony Easton Other [facility] 02-09-2023 08:30-0500 Diastolic blood pressure 71 mm[Hg] Anthony Easton Other [facility] 02-09-2023 08:30-0500 Systolic blood pressure 108 mm[Hg] Anthony Easton Other [facility] 02-01-2023 10:14-0500 Body temperature 97.9 [degF] MD Anthony Easton Work Phone: [facility] 02-01-2023 10:14-0500 Diastolic blood pressure 81 mm[Hg] MD Anthony Easton Work Phone: [facility] 02-01-2023 10:14-0500 Heart rate 83 /min MD Anthony Easton Work Phone: [facility] 02-01-2023 10:14-0500 Respiratory rate 20 /min MD Anthony Easton Work Phone: [facility] 02-01-2023 10:14-0500 SaO2% (BldA) [Mass fraction] 100 % MD Anthony Easton Work Phone: [facility] 02-01-2023 10:14-0500 Systolic blood pressure 128 mm[Hg] MD Anthony Easton Work Phone: [facility] 02-01-2023 10:13-0500 Body height 172.72 cm MD Anthony Easton Work Phone: [facility] 02-01-2023 10:13-0500 Body weight 103.2 kg MD Anthony Easton Work Phone: [facility] 01-31-2023 15:30-0500 Body height 171.45 cm Pema Batista Other [facility] 01-31-2023 15:30-0500 Body mass index (BMI) [Ratio] 35.33 kg/m2 Pema Batista Other [employer] [facility] [employer] Other 01-31-2023 15:30-0500 Body weight 103.87 kg Pema Batista Other [facility] 01-31-2023 15:30-0500 Diastolic blood pressure 84 mm[Hg] Pema Batista Other [facility] 01-31-2023 15:30-0500 SaO2% (BldA) [Mass fraction] 98 % Pema Batista Other [employer] Other 01-31-2023 15:30-0500 Systolic blood pressure 130 mm[Hg] Pema Batista Other [facility] 09-23-2022 11:30-0400 Body height 171.45 cm Anthony Easton Other [facility] [employer] Other 09-23-2022 11:30-0400 Body mass index (BMI) [Ratio] 34.87 kg/m2 Anthony Easton Other [employer] Other 09-23-2022 11:30-0400 Body weight 102.51 kg Anthony Easton Other [employer] Other 09-23-2022 11:30-0400 Diastolic blood pressure 69 mm[Hg] Anthony Easton Other [employer] Other 09-23-2022 11:30-0400 Systolic blood pressure 98 mm[Hg] Anthony Easton Other [employer] Other 03-23-2022 16:00-0500 Body height 171.45 cm Anthony Easton Other [employer] Other 03-23-2022 16:00-0500 Body mass index (BMI) [Ratio] 34.56 kg/m2 Anthony Easton Other [employer] Other 03-23-2022 16:00-0500 Body weight 101.61 kg Anthony Easton Other [employer] Other 03-23-2022 16:00-0500 Diastolic blood pressure 78 mm[Hg] Anthony Easton Other [employer] Other 03-23-2022 16:00-0500 Systolic blood pressure 114 mm[Hg] Anthony Easton Other [employer] Other Encounters Encounter Date Encounter Type Care Provider Facility Start: 05-28-2024 End: 05-28-2024 Patient encounter procedure [facility] Work [facility]: Start: 05-28-2024 End: 05-28-2024 ambulatory Anthony Easton MD Work Phone: [facility] Work Phone: Start: 05-28-2024 End: 05-28-2024 Patient encounter status Ghassan A Visci DO Work Phone: [facility] Start: 05-28-2024 End: 05-28-2024 Periodic preventive med est patient 40-64yrs Ghassan A Visci DO Work Phone: [facility] Comment on above: Encounter for gyneco logical examination with abnormal finding (Primary Dx); Encounter for screening mammogram for malignant neoplasm of breast; Vaginal atrophy Start: 05-28-2024 End: 05-28-2024 ambulatory GHASSAN A VISCI Not Available Start: 05-28-2024 End: 05-28-2024 Bamboo flowsheet Ghassan A Visci DO Work Phone: [facility] Start: 05-28-2024 End: 05-28-2024 Bamboo flowsheet Ghassan A Visci DO Work Phone: [facility] Start: 05-09-2024 End: 05-09-2024 Telephone encounter Monica Raines MD Work Phone: [facility] [place] Start: 04-30-2024 End: 04-30-2024 Office outpatient visit 15 minutes Ghassan A Visci DO Work Phone: [facility] Comment on above: Furuncle Start: 04-30-2024 End: 04-30-2024 ambulatory GHASSAN A VISCI Not Available Start: 04-26-2024 End: 04-26-2024 Bamboo flowsheet Blanco Gonzalez MD Work Phone: [facility] Start: 04-26-2024 End: 04-26-2024 Bamboo flowsheet Blanco Gonzalez MD Work Phone: [facility] Start: 04-26-2024 End: 04-26-2024 Office outpatient visit 15 minutes Blanco Gonzalez MD Work Phone: [facility] Comment on above: Seborrheic keratosis (Primary Dx); Capillary angioma; Rash and other nonspecific skin eruption; Lentigines Start: 04-26-2024 End: 04-26-2024 ambulatory BLANCO A PETITTI Not Available Start: 03-30-2024 End: 03-30-2024 ambulatory [facility] Work Phone: Start: 03-30-2024 End: 03-30-2024 Patient encounter procedure [facility] Work Phone: Start: 01-13-2024 End: 01-13-2024 ambulatory ANTHONY EASOTN [facility] Start: 01-12-2024 End: 01-12-2024 ambulatory [facility] Work Phone: Start: 01-12-2024 End: 01-12-2024 Patient encounter procedure [facility] Work Phone: Start: 11-29-2023 End: 11-29-2023 ambulatory ANTHONY EASTON [facility] Start: 11-24-2023 End: 11-24-2023 ambulatory [facility] Work Phone: Start: 11-24-2023 End: 11-24-2023 Patient encounter procedure [facility] Work Phone: Start: 09-07-2023 End: 09-07-2023 ambulatory BLANCO PETITTI Not Available Start: 08-24-2023 End: 08-24-2023 ambulatory GHASSAN A VISCI Not Available Start: 06-01-2023 End: 06-01-2023 ambulatory BLANCO PETITTI Not Available Start: 05-26-2023 End: 05-26-2023 Emergency department patient visit MD Anthony Easton Work Phone: [facility] Work Phone: Start: 05-05-2023 Non-patient / Non-visit MD Terra Easton Work Phone: [facility] Work Phone: Start: 04-12-2023 End: 04-12-2023 ambulatory ANTHONY EASTON [facility] Start: 04-12-2023 End: 04-12-2023 ambulatory MD Anthony Easton Work Phone: [facility] Work Phone: Start: 04-12-2023 End: 04-12-2023 Patient encounter procedure MD Anthony Easton Work Phone: [facility] Work Phone: Start: 02-14-2023 End: 02-14-2023 ambulatory Anthony Easton Other [employer] Other Start: 02-14-2023 Telephone encounter Anthony Easton [facility] Start: 02-11-2023 End: 02-11-2023 ambulatory Anthony Easton Other [employer] Other Start: 02-11-2023 Telephone encounter Anthony Easton [facility] Start: 02-09-2023 End: 02-09-2023 ambulatory Anthony Easton Other [employer] Other Start: 02-09-2023 Office outpatient vi sit 15 minutes Anthony Easton [facility] Start: 02-09-2023 End: 02-09-2023 Patient encounter procedure MD Anthony Easton Work Phone: [facility] Work Phone: Start: 02-01-2023 End: 02-01-2023 Emergency department patient visit MD Anthony Easton Work Phone: [facility] Work Phone: Start: 01-31-2023 End: 01-31-2023 ambulatory Pema Batista Other [employer] Other Start: 01-31-2023 Office outpatient vi sit 15 minutes Pemajd Batista [facility] Start: 01-31-2023 End: 01-31-2023 Patient encounter procedure MD Anthony Easton Work Phone: [facility] Work Phone: Start: 11-23-2022 End: 11-23-2022 ambulatory Anthony Easton Other [employer] Other Start: 11-23-2022 Telephone encounter Anthony Easton [facility] Start: 11-19-2022 End: 11-19-2022 ambulatory Anthony Easton Other [employer] Other Start: 11-19-2022 Telephone encounter Anthony Easton [facility] Start: 11-04-2022 End: 11-04-2022 ambulatory Anthony Easton Other [employer] Other Start: 11-04-2022 Telephone encounter Anthony Jemma [facility] Start: 10-27-2022 End: 10-27-2022 ambulatory Anthony Easton Other [employer] Other Start: 10-27-2022 Telephone encounter Anthony Jemma [facility] Start: 09-23-2022 End: 09-23-2022 ambulatory Anthony Easton Other [employer] Other Start: 09-23-2022 Office outpatient vi sit 15 minutes Anthony Easton [facility] Start: 08-16-2022 End: 08-16-2022 ambulatory Anthony Easton Other [employer] Other Start: 08-16-2022 Telephone encounter Anthony Jemma [facility] Start: 07-06-2022 End: 07-06-2022 ambulatory Anthony Easton Other [employer] Other Start: 07-06-2022 Telephone encounter Anthony Easton [facility] Start: 05-25-2022 End: 05-25-2022 ambulatory Sudeep Dickinson Other [employer] Other Start: 05-25-2022 Telephone encounter Sudeep Dickinson [facility] Start: 04-08-2022 End: 04-08-2022 ambulatory Anthony Easton Other [employer] Other Start: 04-08-2022 Telephone encounter Anthony Easton [facility] Start: 04-02-2022 End: 04-02-2022 ambulatory Anthony Easton Other [employer] Other Start: 04-02-2022 Telephone encounter Anthony Easton [facility] Start: 03-31-2022 End: 03-31-2022 ambulatory Anthony Easton Other [employer] Other Start: 03-31-2022 Telephone encounter Anthony Easton [facility] Start: 03-27-2022 End: 03-28-[address] ANTHONY EASTON Facility: Start: 03-26-2022 Telephone encounter Eugene Guevara DO Work Phone: [facility] [place] Comment on above: Post Injection Call Start: 03-23-2022 End: 03-23-2022 ambulatory Anthony Easton Other [employer] Other Start: 03-23-2022 Office outpatient vi sit 15 minutes Anthony Easton [facility] Start: 03-11-2022 Telephone encounter Eugene Guevara DO Work Phone: [facility] [place] Comment on above: Preparations For Pro cedures Start: 03-10-2022 Telephone encounter Eugene Guevara DO Work Phone: [facility] [place] Comment on above: [employer] Start: 03-05-2022 End: 03-05-2022 ambulatory Anthony Easton Other [employer] Other Start: 03-05-2022 Telephone encounter Anthony Easton [facility] Start: 02-17-2022 End: 02-17-[address] ANTHONY EASTON Facility:[facility] Start: 02-04-2022 End: 02-04-[address] ANTHONY EASTON Facility:[facility] Start: 01-30-2022 End: 01-30-[address] ANTHONY EASTON Facility:[facility] Start: 01-29-2022 Orders Only Eugene diaz DO Work Phone: [facility] Comment on above: Cervical spondylosis without myelopathy (Primary Dx) Start: 12-10-2021 Chart abstracting Unk (Historical) N eurology Start: 11-18-2021 End: 11-19-[address] ANTHONY EASTON Facility:[facility] Start: 10-08-2021 End: 10-08-2021 ambulatory Jesús Matta Other [employer] Other Start: 10-08-2021 Telephone encounter Jesús Matta [facility] Start: 06-18-2021 End: 06-19-[address] ANTHONY EASTON Facility:[facility] Start: 06-03-2021 End: 06-03-[address] ANTHONY EASTON Facility:[facility] Procedures Date Procedure Procedure Detail Performing Clinician Start: 05-28-2024 End: 05-28-2024 Mammography Ghassan Bae DO Work Phone: Start: 04-26-2024 SKIN / NAIL BIOPSY Rupert Gonzalez MD Work Phone: Start: 04-30-2022 Microscopic observat ion [Identifier] in Cervix by Cyto stain Blanco Gonzalez MD Work Phone: Start: 11-10-2020 Mammography Blanco francisco MD Work Phone: Viral screening Anthony Easton Other Plan of Treatment Date Care Activity Detail Author Start: 06-08-2026 Screening for malignant neoplasm of colon [facility] Start: 06-12-2025 End: 06-12-2025 Patient encounter procedure 06/12/2025 3:30 PM EDT Office Visit [facility] [address] [place] [id number] Ghassan Bae DO [address] [place] [address] [facility] Start: 05-28-2025 Screening for malignant neoplasm of breast Mammogram [facility] Start: 04-30-2025 Screening for malignant neoplasm of cervix [facility] Start: 04-25-2025 End: 04-25-2025 Patient encounter procedure 04/25/2025 9:15 AM EST Office Visit [facility] [address] [place] [address] Blanco Gonzalez MD [address] [place], [place] [id number] [facility] Start: 05-28-2024 End: 05-28-2024 Patient encounter procedure [facility] Comment on above: Encounter for gynecological examination with abnormal finding; Encounter for screening mammogram for malignant neoplasm of breast; Furuncle; Vaginal atrophy Start: 05-28-2024 End: 07-28-2025 DBT Breast - bilateral screening Bilateral screening mammogram with tomosynthesis Imaging Routine Encounter for screening mammogram for malignant neoplasm of breast Expected: 05/28/2024, Expires: 07/28/2025 [facility] Work Phone: Comment on above: Expected: 05/28/2024, Expires: Start: 05-01-2024 End: 05-01-2024 Professional / ancillary services management [facility] Start: 04-26-2024 End: 04-26-2024 Patient encounter procedure 04/26/2024 9:15 AM EST Office Visit [facility] [address] [place] [address] Blanco Gonzalez MD [address] [place], [place] [id number] Arrived [facility] Comment on above: Arrived Start: 10-30-2023 Covid-19 Vaccine () Covid-19 Vaccine () [facility] Start: 10-30-2023 Influenza vaccination Influenza Vaccine (#1) [facility] Start: 05-26-2023 Plain chest X-ray XR chest 1V portable [facility] Start: 05-26-2023 XR Chest Single view [facility] Start: 02-28-2022 DEPRESSION ASSESSMENT DEPRESSION ASSESSMENT [facility] Start: 11-10-2021 Screening for malignant neoplasm of breast Mammogram [facility] Start: 10-29-2021 Influenza vaccination INFLUENZA (#1) [facility] Start: 04-22-2021 COVID-19 VACCINE (4 - Booster for Pfizer series) COVID-19 VACCINE (4 - Booster for Pfizer series) [facility] Start: 02-28-2021 DEPRESSION ASSESSMENT DEPRESSION ASSESSMENT [facility] Start: 08-06-2015 Pneumococcal Vaccine: 50+ (1 of 1 - PCV) Pneumococcal Vaccine: 50+ (1 of 1 - PCV) [facility] Start: 08-06-2015 SHINGRIX VACCINE (1 of 2) SHINGRIX VACCINE (1 of 2) [facility] Start: 2010 COLOGUARD (FIT-DNA) COLOGUARD (FIT-DNA) [facility] Start: 2010 Colonoscopy COLONOSCOPY [facility] Start: 2010 COLORECTAL CANCER SCREENING COLORECTAL CANCER SCREENING [facility] Start: [address] COLONOGRAPHY [facility] Start: 2010 DIABETES SCREEN DIABETES SCREEN [facility] Start: 2010 Diabetes Screening Diabetes Screening [facility] Start: 2010 FECAL OCCULT BLOOD FECAL OCCULT BLOOD [facility] Start: 2010 Lipid panel Lipid Screening [facility] Start: 2010 LIPID SCREEN LIPID SCREEN [facility] Start: 2010 Screening for malignant neoplasm of colon [facility] Start: 2010 SIGMOIDOSCOPY SIGMOIDOSCOPY [facility] Start: 2005 Mammography MAMMOGRAM [facility] Start: 2005 Screening for malignant neoplasm of breast Mammogram Screening [facility] Start: 08-06-1995 HPV TESTING HPV TESTING [facility] Start: 08-06-1995 Screening for malignant neoplasm of cervix HPV/Cotest [facility] Start: 1986 PAP TESTING PAP TESTING [facility] Start: 1986 Screening for malignant neoplasm of cervix Cervical Cancer Screening [facility] Start: 1984 Hepatitis B Vaccine (1 of 3 - 19+ 3-dose series) Hepatitis B Vaccine (1 of 3 - 19+ 3-dose series) [facility] Start: 1984 Urine microalbumin profile [facility] Start: 08-06-1983 Anxiety Screening Anxiety Screening [facility] Start: 08-06-1983 Depression Screening Depression Screening [facility] Start: 08-06-1983 HEPATITIS C SCREENING HEPATITIS C SCREENING [facility] Start: 08-06-1983 Hepatitis C screening Hepatitis C Screening [facility] Start: 08-06-1983 HIV SCREENING HIV SCREENING [facility] Start: 08-06-1983 HIV screening HIV Screening [facility] Start: 02-04-1966 COVID-19 VACCINE (#1) COVID-19 VACCINE (#1) [facility] Start: 1965 HEPATITIS B (1 of 3 - 3-dose series) HEPATITIS B (1 of 3 - 3-dose series) [facility] Start: 1965 Screening for malignant neoplasm of colon [facility] Dermatopathology exam Dermatopat hology exam Pathology and Cytology Timed Rash and other nonspecific skin eruption Release Upon Ordering for 1 Occurrences starting 04/26/2024 [facility] Work Phone: Comment on above: Release Upon Ordering for 1 Occurrences starting 04/26/2024 EKG 12 channel panel [facility] Patient Education [facility] Work Phone: Patient referral [facility] Work Phone: XR Chest 2 Views [facility] XR Chest 2 Views [facility] Payers Date Payer Category Payer Private Health Insurance [id number] 2024 Private Health Insurance [id number] 2024 Private Health Insurance [id number] 2023 Worker's Compensation [id number] 2021 Unknown [employer] [id number] 2021-Present [phone] [address] [place] [address] PPO [id number] 2018 Private Health Insurance [id number] 1965 Unknown [id number] 2.16.840.1.248934.3.579.2. 593 1965 Unknown [id number] 2.16.840.1.182255.3.579.2. 593 1965 Unknown [id number] 2.16.840.1.061274.3.579.2. 593 1965 Unknown [id number] 2.16.840.1.617940.3.579.2. 593 1965 Unknown [id number] 2.16.840.1.277694.3.579.2. 593 1965 Unknown [id number] 2.16.840.1.159076.3.579.2. 593 1965 Unknown [id number] 2.16.840.1.022016.3.579.2. 593 1965 Unknown [id number] 2.16.840.1.612202.3.579.2. 1286 1965 Unknown [id number] 2.16.840.1.607359.3.579.2. 1286 1965 Unknown [id number] 2.16.840.1.880248.3.579.2. 1286 1965 Unknown [id number] 2.16.840.1.342462.3.579.2. 1286 1965 Unknown [id number] 2.16.840.1.044664.3.579.2. 1258 1965 Unknown [id number] 2.16.840.1.029024.3.579.2. 1258 1965 Unknown [id number] 2.16.840.1.178314.3.579.2. 1258 1965 Unknown [id number] 2.16.840.1.131582.3.579.2. 1258 1965 Unknown [id number] 2.16.840.1.784203.3.579.2. 1258 1965 Unknown [id number] 2.16.840.1.868997.3.579.2. 1259 1959 Private Health Insurance [id number] 1959 Self-pay 1959 Unknown [id number] Private Health Insurance [facility] [id number] Unknown [id number] 2.0.1.544302.19 Unknown [id number] 2.0.1.821688.19 Unknown Clary DAVIES/KELLIE [id number] Unknown [id number] 2..840.1.958356.3.579.2. 531 Social History Date Type Detail Facility Unknown if ever smoked [facility] Start: 04-25-2023 End: 05-23-2023 Sex Assigned At [facility] Other Tobacco smoking status TNIS Tobacco smoking consumption unknown [facility] Start: 1965 Sex Assigned At Not on file [facility] Start: 01-05-2022 End: 05-26-2023 Tobacco smoking status NHIS Never smoked tobacco [facility] Start: 01-05-2022 End: 03-07-2023 Tobacco use and exposure Smokeless tobacco non-user [facility] Start: 01-19-2022 End: 05-28-2024 Alcohol intake Lifetime non-drinker (finding) [facility] Start: 01-09-2022 End: 01-19-2022 Exposure to SARS-CoV-2 (event) Not sure [facility] Start: 1965 Sex Assigned At Female [facility] Start: 01-12-2024 End: 05-29-2024 Sex Female (finding) [facility] Start: 04-25-2023 End: 05-23-2023 History of Social function [facility] How often to you have a drink containing alcohol? Monthly or less [facility] How many standard drinks containing alcohol do you have on a typical day? 1 or 2 [facility] How often do you have 6 or more drinks on 1 occasion? Never [facility] Start: 03-11-2023 Alcohol Comment caffeine 1-2 cups/da y [facility] National Score (1-100), lower number is lower risk 71 [facility] NEGATED: Highlighted row [facility] Clinical Notes 12-15-2021 to 05-28-2024 Ghassan Bae, - 05/28/2024 3:15 PM EDTTelephone Encounter - Maribell Adrian - 05/09/2024 3:46 PM EDTTelephone Encounter - Maribell Adrian - 05/09/2024 3:46 PM EDT Note Date & Type Note Facility 05-28-2024 History of Presen t illness Narrative Images from the original note were not included. Ghassan Bae, Obstetrics and Gynecology Reshma Feliz 1965 05/28/24 [id number] Yearly Wellness Exam Chief Complaint Patient presents with Gynecologic Exam Pt presents for yearly. 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 Visit Vitals BP 120/74 Wt 233 lb LMP (LMP Unknown) BMI 36.49 kg/m OB Status Postmenopausal Smoking Status Never BSA 2.24 m History of Present Illness Current Outpatient Medications Medication Sig Dispense Refill ALPRAZolam (Xanax) 0.25 MG tablet Take 0.25 mg by mouth in the morning and 0.25 mg before bedtime. estradiol (Estrace) 0.1 MG/GM vaginal cream Insert 1 g into the vagina 2 (two) times a week 42.5 g 3 levothyroxine (Synthroid, Levoxyl) 75 MCG tablet Take 75 mcg by mouth in the morning. Take on an empty stomach.. Nystop [id number] UNIT/GM powder Apply topically 2 (two) times a day to affected area SUMAtriptan (Imitrex) 100 MG tablet TAKE 1 TAB BY MOUTH ONCE DAILY NEEDED No current facility-administered medications for this visit. Allergies Allergen Reactions Penicillins Unknown and Rash Tongue swelling Tongue swelling Diphenhydramine Other High doses of Benadryl make pt very anxious Naproxen Dizziness, Unknown and GI intolerance dizziness Topiramate Other Reaction(s): Unknown Reaction Tramadol Dizziness, Unknown and Rash Dizziness Past Medical History: Diagnosis Date Anxiety HLD (hyperlipidemia) (CMS/HCC) Hypothyroid (CMS/HCC) Migraine headache (CMS/HCC) Past Surgical History: Procedure Laterality Date JOINT REPLACEMENT Right RT great toe PELVIC LAPAROSCOPY 2002 for endometriosis TONSILLECTOMY OB History Para Term AB Living 0 0 0 0 0 0 SAB IAB Ectopic Multiple Live Births 0 0 0 0 0 Obstetric Comments Pap 04/30/22- Neg, HPV Neg Mammogram 11/08/20- Neg [place] Cologuard 06/09/23- Neg ROS General: Denies fevers/chills Eyes: Denies vision changes ENT: Denies neck stiffness, neck mass Endocrine: Denies polydipsia and polyuria Respiratory: Denies shortness of breath Cardiovascular: Denies chest pain and palpitations Gastrointestinal: Denies changes in bowel habits, blood in stool, constipation and diarrhea. Hematology: Denies easy bruising. Women Only: Denies breast masses, skin changes, nipple discharge, abnormal bleeding, pelvic pain and dyspareunia Genitourinary: Denies dysuria, pelvic pain and nocturia Skin: Denies rashes/lesions Neurologic: Denies headaches, dizziness, syncope Psychiatric: Denies hallucinations, suicidal ideas EXAM GENERAL EXAMINATION: Alert, oriented, well developed, well nourished. HEAD: Normocephalic, atraumatic. EYES: BRENDA, sclera anicteric. EARS: No obvious hearing deficit. NECK/THYROID: Neck supple no cervical lymphadenopathy no thyromegaly. LYMPH NODES: No axillary, supraclavicular or inguinal adenopathy. SKIN: Warm and dry. No rashes HEART: Regular rate and rhythm. No murmur LUNGS: Clear to auscultation bilaterally. CHEST: Axillary nodes grossly normal. BREASTS: No dominant masses palpable bilaterally, no skin changes, nipple discharge, supra-clavicular or axillary adenopathy ABDOMEN: Soft, nontender, nondistended, no hernia or masses palpable. BACK: No obvious scoliosis/kyphosis. FEMALE GENITOURINARY: Design Center Consultant in room-EFG without sores/lesions, atrophic vaginal mucosa-no discharge, cervix without lesions, uterus AV, NSSC, no adnexal masses, cul-de-sac negative, exam limited d/t BMI. EXTREMITIES No edema. NEUROLOGIC: Alert and oriented. PSYCH: Cooperative with exam. ICD-10-CM 1. Encounter for gynecological examination with abnormal finding Z01.411 2. Encounter for screening mammogram for malignant neoplasm of breast Z12.31 Bilateral screening mammogram with tomosynthesis 3. Vaginal atrophy N95.2 estradiol (Estrace) 0.1 MG/GM vaginal cream Advised pt to perform monthly self breast exams. Encouraged calcium and Vitamin D intake. Continues using Estradiol vaginal cream but states not as often as she should. Will refill for 1 year. Mammogram scheduled after OV at [facility], order sent. Cologuard up to date. She will return in 1 year for annual exam. Entered by Yue Mills LPN acting as scribe for Dr. Ghassan Bae. Signature: Yue Mills LPN The documentation recorded by the scribe accurately reflects the service(s) I personally performed and the decisions I made. Signature: Ghassan Bae DO Assessment & Plan documented in this encounter [facility] 05-09-2024 Telephone encount er Note Patient called to see if we received OMR she emailed on 05/04 from [facility] in [place]. Advised we do not have yet. She will double ck email for accuracy. [facility] 05-09-2024 Miscellaneous Notes Formattin g of this note might be different from the original. Patient called to see if we received OMR she emailed on 05/04 from [facility] in [place]. Advised we do not have yet. She will double ck email for accuracy. documented in this encounter [facility] 04-30-2024 History of Presen t illness Narrative Images from the original note were not included. Subjective Reshma Feliz is a 58 y.o. female Chief Complaint Patient presents with Gynecologic Exam Pt presents for a possible boil. Near her buttocks where underwear line is. Had it a month ago,went away and noticed it last week and over the weekend got bigger. Was recently on antibiotic for a sinus infection. Denies drainage, has been putting warm compresses with cowsav. History of Present Illness Current Outpatient Medications: ALPRAZolam (Xanax) 0.25 MG tablet, Take 0.25 mg by mouth in the morning and 0.25 mg before bedtime., Disp: , Rfl: estradiol (Estrace) 0.1 MG/GM vaginal cream, Insert 1 g into the vagina 2 (two) times a week, Disp: 42.5 g, Rfl: 3 levothyroxine (Synthroid, Levoxyl) 75 MCG tablet, Take 75 mcg by mouth in the morning. Take on an empty stomach.., Disp: , Rfl: Nystop [id number] UNIT/GM powder, Apply topically 2 (two) times a day to affected area, Disp: , Rfl: sulfamethoxazole-trimethoprim (Bactrim DS) 800-160 MG per tablet, Take 1 tablet by mouth in the morning and 1 tablet before bedtime. Do all this for 7 days., Disp: 14 tablet, Rfl: 1 SUMAtriptan (Imitrex) 100 MG tablet, TAKE 1 TAB BY MOUTH ONCE DAILY NEEDED, Disp: , Rfl: Past Medical History: Diagnosis Date Anxiety HLD (hyperlipidemia) (CMS/HCC) Hypothyroid (CMS/HCC) Migraine headache (CMS/HCC) Past Surgical History: Procedure Laterality Date JOINT REPLACEMENT Right RT great toe PELVIC LAPAROSCOPY 2002 for endometriosis TONSILLECTOMY Family History Problem Relation Name Age of Onset Heart disease Mother Hypertension Mother Parkinsonism Father Hyperlipidemia Father Heart disease Father Lymphoma Mother's Sister 30's Hodgkin's lymphoma Mother's Brother Breast cancer Paternal Grandmother OB History Para Term AB Living 0 0 0 0 0 0 SAB IAB Ectopic Multiple Live Births 0 0 0 0 0 Obstetric Comments Pap 04/30/22- Neg, HPV Neg Mammogram 11/08/20- Neg ([facility]) Cologuard 06/09/23- Neg Review of Systems All negative unless documented in treatment Objective Visit Vitals BP 128/82 Wt 231 lb LMP (LMP Unknown) BMI 36.18 kg/m OB Status Postmenopausal Smoking Status Never BSA 2.23 m Allergies Allergen Reactions Penicillins Unknown and Rash Tongue swelling Tongue swelling Diphenhydramine Other High doses of Benadryl make pt very anxious Naproxen Dizziness, Unknown and GI intolerance dizziness Topiramate Other Reaction(s): Unknown Reaction Tramadol Dizziness, Unknown and Rash Dizziness Physical Exam Constitutional: Appearance: Normal appearance. Genitourinary: Bladder and urethral meatus normal. Right Labia: No rash, tenderness, lesions or skin changes. Left Labia: No tenderness, lesions (see illustration), skin changes or rash. HENT: Head: Normocephalic and atraumatic. Musculoskeletal: Right lower leg: No edema. Left lower leg: No edema. Neurological: Mental Status: She is alert and oriented to person, place, and time. Skin: General: Skin is warm and dry. Findings: No rash. Procedures ICD-10-CM 1. Furuncle L02.92 sulfamethoxazole-trimethoprim (Bactrim DS) 800-160 MG per tablet States she has a boil that was present approx 1 month ago, seemed to resolve on its own but has returned over the weekend. Denies any drainage. She has been using warm compress and OTC ointment. Discussed ATB with warm compress or incision to try and drain. Will rx Bactrim DS BID for 7 days and encourage warm compress which should resolve. She will call office if symptoms worsen or do not resolve. Entered by Yue Mills LPN acting as scribe for Dr. Ghassan Bae. Signature: Yue Mills LPN The documentation recorded by the scribe accurately reflects the service(s) I personally performed and the decisions I made. Signature: Ghassan Bae DO Assessment & Plan documented in this encounter [facility] 04-26-2024 History of Presen t illness Narrative Images from the original note were not included. Skin Check Location: Patient requests a skin examination from the waist up Dermatologic history: no history of skin cancer, no history of atypical moles, no family history of melanoma Last visit: 1 year ago Established patient Lesions: Location: Left abdomen Duration: few years Quality: itchy, denies pain, denies bleeding Associated symptoms: non-healing, rough Treatments: none All pertinent medical history, medications, and allergies were reviewed. General Exam: alert, oriented to person, place, and time, normal affect, well appearing Unaccompanied A complete skin exam was offered, pt declined. Areas not examined despite medical recommendation: From the waist down Scalp, Examined Head, Face Examined Neck Examined Chest Examined Back Examined Abdomen Examined Right arm Examined Left arm Examined Hands Examined Digits,nails: Examined Lymphatics: Not examined 1. Lentigines Scattered donovan macules in sun-exposed areas. The patient was informed that lentigines are benign pigmented lesions that occur on sun-exposed and sun-damaged skin. No treatment is necessary. Recommended regular use of broad spectrum sunscreen SPF 30 or higher 2. Seborrheic keratosis (2) Mid Parietal Scalp, Torso - Posterior (Back) Stuck on verrucous, donovan-brown papules and plaques. Patient was counseled regarding these benign growths. Removal is normally not necessary, but they may be removed if they are symptomatic or for cosmetic reasons. 3. Capillary angioma (2) Abdomen (Lower Torso, Anterior), Chest (Upper Torso, Anterior) Scattered mane-red papule(s). The patient was informed that angiomas are benign growths on the the skin. No treatment is necessary. 4. Rash and other nonspecific skin eruption Left Breast Scaly pink papules, lesion biopsied today is 0.7 x 0.7 cm Biopsy today, see procedure note. Lesion biopsy - Left Breast Type of biopsy: tangential Informed consent: discussed and consent obtained Informed consent comment: The risks and benefits of the biopsy were discussed. Risks include but are not limited to bleeding, infection, scarring, pain, and nerve damage. An opportunity to ask questions prior to the procedure was permitted and all questions were answered. Patient was prepped and draped in usual sterile fashion: area cleansed with alcohol. Anesthesia: the lesion was anesthetized in a standard fashion Anesthetic: 1% lidocaine w/ epinephrine 1-100,000 buffered w/ 8.4% NaHCO3 Instrument used: DermaBlade Hemostasis achieved with: electrodesiccation Outcome: patient tolerated procedure well Outcome comment: The specimen was placed in a prelabeled formalin container to be sent for pathology Post-procedure details: sterile dressing applied and wound care instructions given Post-procedure details comment: Emphasized need to contact clinic for any signs of infection, uncontrollable bleeding, or complications. Dressing type: bandage Additional details: Photo taken yes Amount of lidocaine used: 0.5 cc Specimen A - Dermatopathology exam Differential Diagnosis: psoriasis vs AK vs SCC vs atopic derm Check Margins: No Size of lesion: 0.7 x 0.7 cm Next Visit: pending biopsy results documented in this encounter [facility] 03-30-2024 Evaluation note Diagnosis Onset Date Resolution Migraine acute March 30, 2024 1:41pm Sinusitis, acute maxillary acute March 30 1:41pm [facility] Work Phone: 1(514) 186-885911-14-2024 Evaluation note* Diagnosis Onset Date Resolution Status Admit Date Dyspnea and respiratory abnormality acute January 11 024 11:40am MARIBELL (obstructive sleep apnea) acute January 12, 2024 11:40am [facility] Work Phone: 1(172) 542-944109-26-2024 Evaluation note* Diagnosis Onset Date Resolution Status Admit Date Thyroid disease acute November 24, 2023 1:02pm Dyspnea and respiratory abnormality acute January 11 11:40am [facility] Work Phone: 1(196) 330-743712-13-2023 Evaluation note* Encounter Date Diagnosis Assessment Notes Treatment Notes Treatment Clinical Notes Jan, Bronchitis (ICD-10 - J40) Explained that mucinex is a good expectorant. Added benzonate to help w cough. No fever. Drainage may continue for 2 weeks total. Finish antibiotic. [facility] 12-04-2023 Evaluation note* Encounter Date Diagnosis Assessment Notes Treatment Notes Treatment Clinical Notes Jan, Bronchitis (ICD-10 - J40) Discussed diagnosis with patient. Patient to start Doxycycline. Patient to take twice daily with food as prescribed and use Activa yogurt during course. Finish entire course of antibiotic. Increase fluids and rest. [id number] antipyretics as needed. Warning signs and symptoms reviewed with patient today. Patient to go immediately to the ER should she experience any of these. Patient to notify office should her symptoms persist and not improve. Patient verbalizes understanding and agrees to treatment plan. [facility] 09-22-2023 Evaluation note* Encounter Date Diagnosis Assessment Notes Treatment Notes Treatment Clinical Notes Oct, Hearing loss, unspecified hearing loss type, unspecified laterality (ICD-10 - H91.90) [facility] 07-27-2023 Evaluation note* Encounter Date Diagnosis Assessment Notes Treatment Notes Treatment Clinical Notes Aug, Other viral warts (ICD-10 - B07.8) Verbal consent obtained. Area treated 3x with cryofreeze. Pt tolerated well. Gave post- care instructions. Aug, Lightheadedness (ICD-10 - R42) Pt describes situations of trouble taking a deep breath at rest. Notes drowsiness when driving distances at times. Feels lightheaded, no syncope.Discussed low bp today. Advised hydration, electrolyte replacement and staying hydrated as she is busy with her new job. Offered heart monitor/echo, labs, cardio referral, but mutually agreed to improve hydration and will call in 2 weeks w an update. ER if lightheadedness becomes more severe. [facility] 01-27-2023 Miscellaneous Notes* Telephone Encounter - Kay Quintero RN - 03/26/2022 1:15 PM EST Spoke to patient and gave MD's information. She verbalized understanding. * Telephone Encounter - Kay Quintero RN - 03/26/2022 1:15 PM EST Images from the original note were not included. Eugene G Mendis, DO You 5 minutes ago (1:08 PM) If continuing to feel better then she can follow up as needed. Thanks * Telephone Encounter - Kay Quintero RN - 03/26/2022 8:46 AM EST Post Spine Injection phone call: Left C4-5 and C5-6 intra-articular facet joint injections on 03/25/2022 Patient denies fever, chills, new headache, prolonged numbness nor exacerbation of pain status. Injection site(s) flat and dry with no redness nor drainage. Did have headache yesterday across the forehead but she is prone to migraines. Took imitrex and so far does not have a headache today. Pre Procedure Pain level: 7/10 pain with turning her head, but 1-2/10 at rest. Immediately Post Procedure 3-4 Pain level today 3-4 Percentage of pain relief: 80%. Just feeling a little achiness in left arm. Feels the soreness in back in related more to where the injection was given. She does not feel the same pain as before. Just more soreness. Can turn her head without pain. Patient verbalized understanding that it may take up to 14 days to realize full benefit of spinal injection. Follow up as indicated on order: Ordering Provider Via Office or Virtual Visit: 2-4 weeks. Patient reminded to bring pain diary to follow appointment. If follow up appointment indicated on order, patient encouraged to schedule follow up appointment 2-4 weeks post procedure by calling [phone] Patient does not have any questions or concerns. Patient will call office with any questions or concerns. Spoke to patient has a new job is going to be losing the insurance that she has and does not want to take the Cobra as a supplement for a month (quite expensive). She has to look into a personal andriy her work does not offer. If she is feeling better does she need the follow up. Can she just callin with the information? Can leave a message on voicemail. [facility] Encounter Date Diagnosis Assessment Notes Treatment Notes Treatment Clinical Notes Feb, RUQ abdominal pain (ICD-10 - R10.11) Feb, Neuropathy involving both lower extremities (ICD-10 - G57.93) [facility] 01-13-2023 Miscellaneous Notes* Telephone Encounter - Kay Quintero RN - 03/12/2022 3:17 PM EST Spoke to patient gave MD s information and she verbalized understanding. Thanks * Telephone Encounter - Kay Quintero RN - 03/12/2022 3:15 PM EST Images from the original note were not included. Eugene Guevara, DO You 2 hours ago (12:56 PM) Ok to take Imitrex if needed. Thanks * Telephone Encounter - Kay Quintero RN - 03/11/2022 1:58 PM EST Phoned patient and spoke with patient to confirm appointment for Reshma Esparzas for spine procedureon 03/25/2022. Patient notified that Kerby will call patient the night before with the time to arrive for injection. Patient verbalized understanding of the following: -Provided education on spine procedure and answered questions related to spine injection procedure. -Hazardous Materials Waste Technician is needed to drive patient home. Patient's brother will wait until procedure is complete and then drive her home. -NPO 6 hours prior to appointment, ok to take morning medications with sip of water. -Not to take any pain medications the day of injection to see how well injection works. -Do not take any NSAIDs/anti-inflammatories (mobic, ibuprofen, advil, aleve, etc) the day of procedure for all lumbar, hip, and sacroiliac joint procedures. Hold NSAIDs for 1 day prior to procedure for cervical cases. Allergies reviewed: Yes Allergy to IV contrast dye or steroids: No and not allergic to shellfish either Taking any antiplatelet/anticoagulant (blood thinners): No Taking aspirin 81mg: No Any open wounds/sores?: No Taking Antibiotics?: No Patient given number [phone], spine injections schedulers, if there is any need to reschedule/change appointment during normal business hours. Active MyChart users were informed to read MyChartprocedure instructions prior to appointment. AMBULATORY PATIENT EDUCATION TOPIC: SPINE INJECTION PROCEDURE, PRE-INJECTION AND POST- INJECTION INSTRUCTIONS READINESS TO LEARN COGNITIVE ABILITY: ALERT AND ORIENTED MOTIVATION TO LEARN: Interested FAMILY SUPPORT: Unable to assess - Family not present INSTRUCTION PROVIDED TO: Patient PATIENT LEARNS BEST BY: INDIVIDUAL INSTRUCTION FACTORS AFFECTING LEARNING: None PHYSICAL LIMITATIONS AFFECTING LEARNING: None LEARNING RESPONSE METHOD OF INSTRUCTION: TEACH BACK AND INDIVIDUAL INSTRUCTION PATIENT / FAMILY RESPONSE: VERBALIZED UNDERSTANDING OF PRE AND POST INJECTION INSTRUCTIONS Patient takes Imitrex for Migraines. If she gets one. Could she take one? She is worried might bring one on. [facility] Miscellaneous Notes* Telephone Encounter - Kay Quintero RN - 03/11/2022 7:41 AM EST Mailed instructions. * Telephone Encounter - Kay Quintero RN - 03/10/2022 3:56 PM EST Will mail instructions for Pre-Procedure for injection on 03/25 to patient when get into office tomorrow. [facility] History of Present illness Narrative* Kathleen Alatorre PA-C - 12/15/2021 1:14 PM EDT C/o neck pain, left arm pain, and weakness. CMT: -PT -Director Of Professional Services -Muscle Relaxants -NSAIDs Cervical X-Ray reveals multi-level degenerative changes. Cervical MRI reveals degenerative changes with only mild foraminal narrowing. Recommend New Patient appt with first available surgical GABRIEL for further review of MRI - in person or virtually. Patient to upload or mail imaging to office prior to appointment. Imaging report findings only describe foraminal narrowing as mild. Potential consideration of a possible positive spurlings test or cervical IVETTE to be considered. Kathleen Alatorre PA-C * Dasha Ingram - 12/10/2021 2:23 PM EDT Patient name: Reshma Feliz Are you being referred by a [place] for Spine Health Provider or Pain Management Provider at [facility]? No If answer is YES please schedule directly with surgeon, triage does not need to be completed. Is this a self-referral No If not, who is the Referring Provider Dr. Anthony Easton Is this a 2nd opinion, have you been offered surgery by another surgeon? No MRI/CT/myelogram within 12 months? No If NO , please refer to medical spine or PCP to complete above imaging, triage does not need to be completed If YES, please ask for the name/address of the facility where the MRI/CT/myelogram was completed: [place] [address] MRI/CT/myelogram viewable in Epic: No If not, please provide [phone] to fax in imaging reports for review. Also, please inform patient to hand carry imaging disc to appointment. XR (spine) within 12 months: Yes If YES, please ask for the name/address of the facility where the XR was completed: [place] [address] Dr. Thomas's patients: Have you had previous EMG/Nerve Conduction Study, Ultrasound, or MRI for thesesame symptoms? If YES, please ask for the name/address of the facility where they were completed: Requested provider (First and Last name): Unknown Are you interested in a virtual visit if offered? 1. Where are you having symptoms related to this visit? Cervical spine Back pain Yes Leg pain No Arm pain Yes Lt arm Neck pain Yes Lt side 2. Are you having any of the following symptoms: Difficulty walking No Numbness No Weakness Yes hands (off and on) Trouble using your hands? No 3. Have you had any injections or physical therapy in the last 12 months? Yes If YES then please ask for the name/address of the facility where the injections and/or physical therapy was completed PT: [facility] [address], [place] [address] Have you tried any other kinds of non-surgical treatments in the last 12 months? (For example: NSAIDS, muscle relaxants, analgesics, oral steroids, Chiropractor, Acupuncture): Chiropractor, muscle relaxants, NSAIDS 4. Are you currently taking daily prescribed narcotic medications for your current symptoms (For example Oxycodone, Hydrocodone, Tramadol, Morphine, Other)? No 5. Have you had previous spinal surgery for this same symptoms? No If YES please ask for the name of facility/address of where the surgery was completed: Additional Comments [phone] [facility] noteNo InformationNoranken [facility] [employer] Other Evaluation note* Diagnosis Cervical spondylosis without myelopathy- Primary documented in this encounter [facility] noteNo assessment information [facility] Work Phone: Evaluation note* Diagnosis Onset Date Resolution Status Dyspnea and respiratory abnormality acute GERD without esophagitis acu te [facility] Work Phone: Evaluation note* Diagnosis Onset Date Resolution Status Dyspnea and respiratory abnormality acute GERD without esophagitis acu te Reaction, situational, acute, to stress acute [facility] Work Phone: Evaluation note* Diagnosis Onset Date Resolution Status Thyroid disease acute [facility] Work Phone: Evaluation note* Diagnosis Seborrheic keratosis- Primary Capillary angioma Nevus, non-neoplastic Rash and other nonspecific skin eruption Lentigines documented in this encounter [facility] HealthcareEvaluation note* Diagnosis Furuncle Carbuncle and furuncle of unspecified site documented in this encounter [facility] HealthcareEvaluation note* Diagnosis Encounter for gynecological examination with abnormal finding- Primary Encounter for screening mammogram for malignant neoplasm of breast Vaginal atrophy Postmenopausal atrophic vaginitis documented in this encounter [facility] Healthcare[facility] general Narrative - Reported* Type Description Date Medical History migraines Medical History hypo thyroid Medical History Anxiety disorder Medical History Arthritis Surgical History laparoscopy Surgical History toe joint replacement Surgical History Tonsils [employer] Other History general Narrative - Reported* Type Description Date Medical History Bacterial sinusitis Medical History Syncope and collapse Medical History Hypothyroidism Medical History Acute dyspnea Medical History Thyromegaly Medical History Acute eczema Medical History COVID Medical History Cervical pain Surgical History laparoscopy 1999 Surgical History toe joint replacement Surgical History Tonsils 1999 Hospitalization History SEE SURGICAL HX [facility] Other Hospital Discharge instructions Additional Instructions Thankfully there is no sign that the pain in the side of your chest is related to your heart or to another dangerous problem. I am going to prescribe you some medicine for pain and inflammation. We are happy to see you if there are any further problems or concerns. Be sure to follow-up with your doctor.[facility] Work Phone: Summary Purpose Family History No Family History Records Found Relationship Condition Age at Onset Recorded Date/T silvia father Unknown Advance Directives No Advanced Directives Records Found Advance Directive Response Recorded Date/ Time Advance Directives No March 12, 2017 11:30am Advance Directive Response Recorded Date/ Time Advance Directives No March 12, 2017 12:30pm Reason for Referral Reason *FU 11/29 Monica Gonzales. Diagnosis 1 Hearing loss, unspec ified hearing loss type, unspecified laterality (H91.90) Referral Organization [facility] donny Referring Provider First Name Anthony Referring Provider Last Name Jemma Referring Provider Specialty [facility] Referred Organization [facility] Referred Provider Monica Gonzales Referred Address ,[place], [place],[address] Referred Provider Specialty Audiologists Referral Priority Routine General Notes Najma Mays 08:39:54 AM >received today, attachments made, notes locked, referral faxed Chief Complaint and Reason for Visit Chief Complaint chest congestion Chief Complaint Congestion-Covid Neg ative chest congestion Bronchitis Follow Up Shortness of Breath Reason for Visit Dyspnea and respirat ory abnormality GERD without esophagitis Chief Complaint Shortness of Breath Amb Documentation cp Reason for Visit Dyspnea and respirat ory abnormality GERD without esophagitis Reaction, situational, acute, to stress Chief Complaint feeling depressed, w ants thyroid checked again Reason for Visit Thyroid disease Chief Complaint Admit Date feeling depressed, wants thyroid checked again November 24, 2023 1:02pm Shortness of Breath January 12, 2024 11:40am Reason for Visit Admit Date Thyroid disease November 24, 2023 1:02pm Dyspnea and respiratory abnormality Emily bailey 2023 11:40am Chief Complaint Admit Date Shortness of Breath January 12, 2024 11:40am Sinus Infection March 30, 2024 1 :41pm Reason for Visit Admit Date Dyspnea and respiratory abnormality Emily bailey 2023 11:40am MARIBELL (obstructive sleep apnea) December 292023 11:40am Chief Complaint Admit Date Sinus Infection March 30, 2024 1 :41pm Screening May 28, 2024 4:4 4pm Reason for Visit Admit Date Migraine March 30, 2024 1 :41pm Sinusitis, acute maxillary March 30, 2024 1:41pm Additional Source Comments Source Comments (unrecognize d section and content) In the event this informatio n is protected by the Federal Confidentiality of Alcohol and Drug Abuse Patient Records regulations: The Federal rules restrict any use of the information to criminally investigate or prosecute any alcohol or drug abuse patient.[facility] Hospital[facility] the event this information is protected by the Federal Confidentiality of Alcohol and Drug Abuse Patient Records regulations: The Federal rules restrict any use of the information to criminally investigate or prosecute any alcohol or drug abuse patient.[facility] HospitalIn the event this information is protected by the Federal Confidentiality of Alcohol and Drug Abuse Patient Records regulations: The Federal rules restrict any use of the information to criminally investigate or prosecute any alcohol or drug abuse patient.[facility] HospitalIn the event this information is protected by the Federal Confidentiality of Alcohol and Drug Abuse Patient Records regulations: The Federal rules restrict any use of the information to criminally investigate or prosecute any alcohol or drug abuse patient.[facility] HospitalIn the event this information is protected by the Federal Confidentiality of Alcohol and Drug Abuse Patient Records regulations: The Federal rules restrict any use of the information to criminally investigate or prosecute any alcohol or drug abuse patient.[facility] HospitalIn the event this information is protected by the Federal Confidentiality of Alcohol and Drug Abuse Patient Records regulations: The Federal rules restrict any use of the information to criminally investigate or prosecute any alcohol or drug abuse patient.[facility] Care Teams (unrecognized sec tion and content) Life Enrichment Assistant Relationship Specialty Start Date End Date Anthony Easton MD [address] [facility] [place] [address] PCP - General Family Medicine 12/10/21 Anthony Easton MD [address] [facility] [place] [address] Family Medicine 12/04/21 Life Enrichment Assistant Relationship Specialty Start Date End Date Anthony Easton MD [address] [facility] [place] [address] PCP - General Family Medicine 12/10/21 Anthony Easton MD [address] [facility] [place] [address] Family Medicine 12/04/21 Life Enrichment Assistant Relationship Specialty Start Date End Date Anthony Easton MD [address] [facility] [place] [address] PCP - General Family Medicine 12/10/21 Anthony Easton MD [address] [facility] [place] [address] Family Medicine 12/04/21 Life Enrichment Assistant Relationship Specialty Start Date End Date Anthony Easton MD [address] [facility] [place] [address] PCP - General Family Medicine 12/10/21 Anthony Easton MD [address] [facility] [place] [address] Family Medicine 12/04/21 Life Enrichment Assistant Relationship Specialty Start Date End Date Anthony Easton MD [address] [facility] [place] [address] PCP - General Family Medicine 12/10/21 Anthony Easton MD [address] [place] [phone] Family Medicine 12/04/21 Team Status: Active Member Role Status Dates Anthony Easton MD Primary Care Provider Active Team Status: Inactive Member Role Status Dates Anthony Easton MD Primary Care Provider Active Arslan Gonzalez APRN Emergency Provider Active Team Status: Inactive Member Role Status Dates Pema Batista APRN [employer] [place] Attending Provider Act radu Start: January 31, 2023 End: January 31, 2023 Team Status: Inactive Member Role Status Dates Anthony Easton MD Primary Care Provider Active Start: February 01, 2023 End: February 01, 2023 Arslan Gonzalez APRN Emergency Provider Active Start: February 01, 2023 End: February 01, 2023 Team Status: Inactive Member Role Status Dates Anthony Easton MD Attending Provider Active St art: February 09, 2023 End: February 09, 2023 Team Status: Inactive Member Role Status Dates Anthony Easton MD Primary Care Provide r, Attending Provider Active Start: April 12, 2023 End: April 12, 2023 Team Status: Active Member Role Status Dates Anthony Easton MD Primary Care Provider Active Start: May 05, 2023 CONCHIS Pressley Attending Provider Active Start : May 05, 2023 Team Status: Inactive Member Role Status Dates Anthony Easton MD Primary Care Provider Active Start: May 26, 2023 End: May 26, 2023 Jesús Smith Jr, MD Emergency Provider Active Start: May 26, 2023 End: May 26, 2023 Team Status: Inactive Member Role Status Dates Anthony Easton MD Primary Care Provide r, Attending Provider Active Start: November 24, 2023 End: November 24, 2023 Team Status: Inactive Member Role Status Dates Anthony Easton MD Primary Care Provide r, Attending Provider Active Start: January 12, 2024 End: January 12, 2024 Team Status: Inactive Member Role Status Dates Anthony Easton MD Primary Care Provide r, Attending Provider Active Start: March 30, 2024 End: March 30, 2024 Life Enrichment Assistant Relationship Specialty Start Date End Date Anthony Easton MD [address] [place] [phone] PCP - General Family Medicine 01/13/23 Life Enrichment Assistant Relationship Specialty Start Date End Date Anthony Easton MD [address] [facility] [place] [phone] PCP - General Family Medicine 01/13/23 Life Enrichment Assistant Relationship Specialty Start Date End Date Anthony Easton MD [address] [facility] [place] [address] PCP - General Family Medicine 01/13/23 Life Enrichment Assistant Relationship Specialty Start Date End Date Anthony Easton MD [address] [facility] [place] [address] PCP - General Family Medicine 12/10/21 Anthony Easton MD [address] [facility] [place] [address] Family Medicine 12/04/21 Life Enrichment Assistant Relationship Specialty Start Date End Date Anthony Easton MD [address] [facility] [place] [id number] PCP - General Family Medicine 01/13/23 Team Status: Inactive Member Role Status Dates Anthony Easton MD Primary Care Provider Active Start: May 28, 2024 End: May 28, 2024 Referral Self Attending Provider Active Start: Rosalba reynolds 2024 End: May 28, 2024 Ghassan Bae DO Referring Provider Active Sta rt: May 28, 2024 End: May 28, 2024 Reason for Visit (unrecogniz ed section and content) Reason Comments Gynecologic Exam Pt presents for year ly. 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 Reason Comments Gynecologic Exam Pt presents for a po ssible boil. Near her buttocks where underwear line is. Had it a month ago,went away and noticed it last week and over the weekend got bigger. Was recently on antibiotic for a sinus infection. Denies drainage, has been putting warm compresses with cowsav. Reason Comments Skin Check bronchitis follow upcongestion-COVID NegativemessageWART ON ARM - HURTS. LIGHT HEADED SPELL Sprescription refilllabsTEST RESULTSGALLBLADDER ISSUES Reason Comments Post Injection Call Reason Comments Preparations For Procedures INFORMATION SOURCE (unrecogn ized section and content) DATE CREATED AUTHOR [facility]2022 [facility] DATE CREATED AUTHOR AUTHOR'S ORGANIZ ATION 01/16/2024 [facility] DATE CREATED AUTHOR AUTHOR'S ORGANIZ ATION 05/16/2024 [facility] DATE CREATED AUTHOR AUTHOR'S ORGANIZ ATION 05/29/2024 [facility] DATE CREATED AUTHOR AUTHOR'S ORGANIZ ATION 05/29/2024 [facility] Goals (unrecognized section and content) Goals may be documented in a n alternate section FOR RECORDS PERTAINING TO PATIENTS WHO ARE OR HAVE BEEN ENROLLED IN A CHEMICAL DEPENDENCY/SUBSTANCEABUSE PROGRAM, SOME INFORMATION MAY BE OMITTED. This clinical summary was aggregated from multiple sources. Caution should be exercised in using it in the provision of clinical care. This summary normalizes information from multiple sources, and as a consequence, information in this document may materially change the coding, format and clinical context of patient data. In addition, data may be omitted in some cases. CLINICAL DECISIONS SHOULD BE BASED ON THE PRIMARY CLINICAL RECORDS. [facility] [employer] provides no warranty or guarantee of the accuracy or completeness of information in this document.
[2024-06-01 17:06] VITALS: O2SAT 97
--- NOTE | 2024-06-01 17:15 | PC.NURSE ---
pt to cT via wheelchair at this time.
[2024-06-01] MEDS: DEXAMETHASONE SOD PHOS 10 MG/ML VIAL PO (17:27)
[2024-06-01] MEDS: KETOROLAC TROMETHAMINE 60 MG/2 ML VIAL IM (17:38)
--- NOTE | 2024-06-01 17:40 | ED_ITS ---
Documented by User: Katina Ram 06/01/24 17:43 HPI HPI - General Adult General Chief complaint: Headache Stated complaint: PAIN ABOVE EYE, LEFT SIDE HEAD Time Seen by Provider: 06/01/24 16:48 Mode of arrival: walk-in Limitations: no limitations History of Present Illness HPI narrative: 58-year-old female presents here with a chief complaint of a 3-day history of a headache. Patient states she has a history of migraine headaches but this is not a typical headache for her. She complains of pain over the left eye that radiates into her scalp. There is no rash noted to the scalp. She is otherwise in no acute distress denies photophobia nausea or vomiting. Just complains of headache pain. She states she has used Imitrex at home with some relief. Patient denies worst headache of her life sudden onset or thunderclap sensation Related Data Home Medications ?Medication ?Instructions ?Recorded ?Confirmed alprazolam 0.25 mg tablet 0.25 mg PO Q12H 04/02/23 04/02/23 benzonatate 200 mg capsule 200 mg PO Q8H 04/02/23 04/02/23 doxycycline monohydrate 100 mg 100 mg PO Q12H 04/02/23 04/02/23 tablet levothyroxine 75 mcg tablet 75 mcg PO Q24H 04/02/23 04/02/23 Previous Rx's ?Medication ?Instructions ?Recorded ondansetron 4 mg disintegrating 4 mg PO Q6H PRN nausea and 04/02/23 tablet vomiting #20 tabs Allergies Allergy/AdvReac Type Severity Reaction Status Date / Time naproxen (From Aleve) Allergy Unknown Verified 04/02/23 05:12 Penicillins Allergy Unknown Verified 04/02/23 05:07 tramadol Allergy Unknown Verified 04/02/23 05:07 Opioid HPI Opioid Management Most Recent Opioid Data: Last Pain Scale 3 06/01/24 17:38 06/01/24 Last MAR Pain Assessment 06/01/24 17:38 Review of Systems ROS Narrative All Systems are negative except as noted/marked.All systems reviewed and otherwise negative PFSH PFSH Social History Smoking status: Never smoker Little interest or pleasure in doing things: not at all Feeling down, depressed, or hopeless: not at all Exam Narrative Exam Narrative: Nurses note and vital signs reviewed and patient is not hypoxic. General: The patient appears well and in no apparent distress. Patient is resting comfortably on cart. Skin: Warm, dry, no pallor noted. There is no rash noted. Head: Normocephalic, atraumatic Eye: Normal conjunctiva, no drainage, EOMI. PERRL Ears, Nose, Mouth, and Throat: oral mucosa is moist. Nares patent. Mouth without vesicles. Ear canals patent. Tm's without Erythema Cardiovascular: Regular Rate and Rhythm Respiratory: Patient is in no distress, no accessory muscle use, lungs are clear to auscultation, no wheezing, rales or rhonchi Musculoskeletal: The patient has no evidence of calf tenderness, no pitting edema, symmetrical pulses noted bilaterally Neurological: A&O x4, normal speech Psychiatric: Cooperative Constitutional Vital Signs, click to edit/add: Last Vital Signs Temp 97.8 F 06/01/24 15:20 Pulse 85 06/01/24 15:20 Resp 18 06/01/24 15:20 BP 132/77 06/01/24 15:20 Pulse Ox 97 06/01/24 17:06 O2 Del Method Room Air 06/01/24 17:06 Course Vital Signs Vital signs: Vital Signs Temperature 97.8 F 06/01/24 15:20 Pulse Rate 85 06/01/24 15:20 Respiratory Rate 18 06/01/24 15:20 Blood Pressure 132/77 06/01/24 15:20 Pulse Oximetry 97 06/01/24 15:20 Oxygen Delivery Method Room Air 06/01/24 15:20 Temperature 97.8 F 06/01/24 15:20 Pulse Rate 85 06/01/24 15:20 Respiratory Rate 18 06/01/24 15:20 Blood Pressure 132/77 06/01/24 15:20 Pulse Oximetry 97 06/01/24 17:06 Oxygen Delivery Method Room Air 06/01/24 17:06 Medical Decision Making MDM Narrative Medical decision making narrative: Patient presented to the emergency room with a chief complaint of headache. She does have a history of migraines. She states she not feel comfortable and states that this headache was different than previous. Denied sudden onset or thunderclap sensation. Head CT was performed today and showed no acute abnormalities. Patient was medicated with Toradol Decadron refused Phenergan. Patient may be discharged to home. She agrees with plan of care. She does have Imitrex at home as well. Differential Diagnosis Differential Diagnosis: headache, migraine Medical Records Medical records reviewed: Yes I reviewed the patient's medical records Lab Data Lab results reviewed: Yes I reviewed the patient's lab results Discharge Plan Discharge Chief Complaint: Headache Clinical Impression: Headache Patient Disposition: Home, Self-Care Time of Disposition Decision: 17:40 Condition: Good Prescriptions / Home Meds: No Action alprazolam 0.25 mg tablet 0.25 mg PO Q12H benzonatate 200 mg capsule 200 mg PO Q8H doxycycline monohydrate 100 mg tablet 100 mg PO Q12H levothyroxine 75 mcg tablet 75 mcg PO Q24H ondansetron 4 mg tablet,disintegrating 4 mg PO Q6H PRN (Reason: nausea and vomiting) Qty: 20 0RF Print Language: Japanese Instructions: Acute Headache (ED) Referrals: Josi Ruiz MD [Primary Care Provider] - 1 week Discharge Date/Time: 06/01/24 17:55 Documented by User: Tam Lion MD 06/01/24 19:42 HPI HPI - General Adult General Chief complaint: Headache Stated complaint: PAIN ABOVE EYE, LEFT SIDE HEAD Time Seen by Provider: 06/01/24 16:48 Related Data Home Medications ?Medication ?Instructions ?Recorded ?Confirmed alprazolam 0.25 mg tablet 0.25 mg PO Q12H 04/02/23 04/02/23 benzonatate 200 mg capsule 200 mg PO Q8H 04/02/23 04/02/23 doxycycline monohydrate 100 mg 100 mg PO Q12H 04/02/23 04/02/23 tablet levothyroxine 75 mcg tablet 75 mcg PO Q24H 04/02/23 04/02/23 Previous Rx's ?Medication ?Instructions ?Recorded ondansetron 4 mg disintegrating 4 mg PO Q6H PRN nausea and 04/02/23 tablet vomiting #20 tabs Allergies Allergy/AdvReac Type Severity Reaction Status Date / Time naproxen (From Aleve) Allergy Unknown Verified 04/02/23 05:12 Penicillins Allergy Unknown Verified 04/02/23 05:07 tramadol Allergy Unknown Verified 04/02/23 05:07 Opioid HPI Opioid Management Most Recent Opioid Data: Last Pain Scale 3 06/01/24 17:38 06/01/24 Last APR Pain Assessment 06/01/24 17:38 PFSH PFSH Social History Smoking status: Never smoker Little interest or pleasure in doing things: not at all Feeling down, depressed, or hopeless: not at all Exam Constitutional Vital Signs, click to edit/add: Last Vital Signs Temp 97.8 F 06/01/24 15:20 Pulse 85 06/01/24 15:20 Resp 18 06/01/24 15:20 BP 132/77 06/01/24 15:20 Pulse Ox 97 06/01/24 17:06 O2 Del Method Room Air 06/01/24 17:06 Course Vital Signs Vital signs: Vital Signs Temperature 97.8 F 06/01/24 15:20 Pulse Rate 85 06/01/24 15:20 Respiratory Rate 18 06/01/24 15:20 Blood Pressure 132/77 06/01/24 15:20 Pulse Oximetry 97 06/01/24 15:20 Oxygen Delivery Method Room Air 06/01/24 15:20 Temperature 97.8 F 06/01/24 15:20 Pulse Rate 85 06/01/24 15:20 Respiratory Rate 18 06/01/24 15:20 Blood Pressure 132/77 06/01/24 15:20 Pulse Oximetry 97 06/01/24 17:06 Oxygen Delivery Method Room Air 06/01/24 17:06 Medical Decision Making [facility] Narrative Medical decision making narrative: Patient presented to the emergency room with a chief complaint of headache. She does have a history of migraines. She states she not feel comfortable and states that this headache was different than previous. Denied sudden onset or thunderclap sensation. Head CT was performed today and showed no acute abnormalities. Patient was medicated with Toradol Decadron refused Phenergan. Patient may be discharged to home. She agrees with plan of care. She does have Imitrex at home as well. I, Dr Lion, have reviewed the above progress note and course of action in the ER; agree with the above. I have personally gone over history and physical, and discussed disposition and treatment plan with the PA. Discharge Plan Discharge Chief Complaint: Headache Clinical Impression: Headache Patient Disposition: Home, Self-Care Time of Disposition Decision: 17:40 Condition: Good Prescriptions / Home Meds: No Action alprazolam 0.25 mg tablet 0.25 mg PO Q12H benzonatate 200 mg capsule 200 mg PO Q8H doxycycline monohydrate 100 mg tablet 100 mg PO Q12H levothyroxine 75 mcg tablet 75 mcg PO Q24H ondansetron 4 mg tablet,disintegrating 4 mg PO Q6H PRN (Reason: nausea and vomiting) Qty: 20 0RF Print Language: Japanese Instructions: Acute Headache (ED) Referrals: Josi Ruiz MD [Primary Care Provider] - 1 week Discharge Date/Time: 06/01/24 17:55
== END 2024-06-01 17:55 | disposition home or self-care (01) ==
PROVIDERS: Emergency Provider Emergency Medicine; PCP Family Medicine
DX: R51.9 Headache, unspecified (principal)
CPT/HCPCS: 70450; 96372; 99285; J1100; J1885